=== PATIENT | male | born 1955 | race Caucasian/White ===

== ENCOUNTER 2018-07-06 20:02 | Inpatient (IN) | payer BC, OTHER ==
[2018-07-06 20:48] LABS: BASO # 0.1 10^3/uL (0.0-0.2); BASO % 0.7 % (0.0-1.0); EOS # 0.4 10^3/uL (0.0-0.50); EOS % 2.5 % (0.0-3.0); HEMATOCRIT 51.8 % (42.0-52.0); HEMOGLOBIN 17.5 g/dl (13.5-17.5); IMMATURE GRANULOCYTE % 0.4 % (0-3.0); LYMPH # 4.3 10^3/uL (1.5-4.5); LYMPH % 29.8 % (24.0-44.0); MEAN CORPUSCULAR HEMOGLOBIN 30.6 pg (27.0-33.0); MEAN CORPUSCULAR HGB CONC 33.8 g/dl (32.0-36.5); MEAN CORPUSCULAR VOLUME 90.6 fl (80.0-96.0); MONO # 1.3 10^3/uL (0.0-0.8); MONO % 8.7 % (0.0-5.0); NEUTROPHILS # 8.3 10^3/uL (1.8-7.7); NEUTROPHILS % 57.9 % (36.0-66.0); PLATELET COUNT, AUTOMATED 314 10^3/uL (150-450); RED BLOOD COUNT 5.72 10^6/uL (4.30-6.10); RED CELL DISTRIBUTION WIDTH 14.3 % (11.5-14.5); WHITE BLOOD COUNT 14.3 10^3/uL (4.0-10.0)
[2018-07-06 20:51] LABS: INR 0.96; PROTHROMBIN TIME 12.9 SECONDS (12.1-14.4)
[2018-07-06 20:52] LABS: PARTIAL THROMBOPLASTIN TIME 28.5 SECONDS (25.4-37.6)
[2018-07-06] MEDS: METOPROLOL TART 50 MG TAB PO ×2 (21:20)
[2018-07-06 21:25] LABS: ANION GAP 4 MEQ/L (8-16); BLOOD UREA NITROGEN 17 MG/DL (7-18); CALCIUM LEVEL 8.7 MG/DL (8.8-10.2); CARBON DIOXIDE LEVEL 30 MEQ/L (21-32); CHLORIDE LEVEL 106 MEQ/L (98-107); CPK CREATINE PHOSPHOKINASE 131 U/L (39-308); CREATININE FOR GFR 1.55 MG/DL (0.70-1.30); GLOMERULAR FILTRATION RATE 48.8 (>49); GLUCOSE, FASTING 89 MG/DL (70-100); MB/CK RELATIVE INDEX 1.76 (< OR =4); POTASSIUM SERUM 4.4 MEQ/L (3.5-5.1); SODIUM LEVEL 140 MEQ/L (136-145); TROPONIN I < 0.02 NG/ML (< 0.10)
[2018-07-06] MEDS: ASPIRIN ENTERIC 325 MG TAB PO ×2 (23:20)
[2018-07-07] MEDS: NS 1,000 ML IV ×4 (00:30→15:05)
[2018-07-07] MEDS ORDERED: NEOSPORIN OINT 0.9 GM PKT (FLOOR STOCK) As Ordered ×2 (02:39)
[2018-07-07 07:24] LABS: HEMATOCRIT 46.8 % (42.0-52.0); MEAN CORPUSCULAR HEMOGLOBIN 30.2 pg (27.0-33.0); MEAN CORPUSCULAR HGB CONC 34.2 g/dl (32.0-36.5); MEAN CORPUSCULAR VOLUME 88.5 fl (80.0-96.0); PLATELET COUNT, AUTOMATED 303 10^3/uL (150-450); RED BLOOD COUNT 5.29 10^6/uL (4.30-6.10); RED CELL DISTRIBUTION WIDTH 14.2 % (11.5-14.5); WHITE BLOOD COUNT 16.5 10^3/uL (4.0-10.0)
[2018-07-07 07:31] LABS: ESTIMATED AVERAGE GLUCOSE 128 MG/DL (60-110); HEMOGLOBIN A1c 6.1 %
[2018-07-07 07:41] LABS: ANION GAP 5 MEQ/L (8-16); BLOOD UREA NITROGEN 18 MG/DL (7-18); CALCIUM LEVEL 8.1 MG/DL (8.8-10.2); CARBON DIOXIDE LEVEL 27 MEQ/L (21-32); CHLORIDE LEVEL 109 MEQ/L (98-107); CHOLESTEROL LEVEL 231 MG/DL (<200); CREATININE FOR GFR 1.62 MG/DL (0.70-1.30); GLOMERULAR FILTRATION RATE 46.3 (>49); GLUCOSE, FASTING 96 MG/DL (70-100); HDL CHOLESTEROL 22 MG/DL (>40); LDL CHOLESTEROL 169 MG/DL (<100); NON-HDL-C 209 MG/DL; SODIUM LEVEL 141 MEQ/L (136-145); TRIGLYCERIDES LEVEL 202 MG/DL (<150)
[2018-07-07] MEDS: ATORVASTATIN 20 MG TAB PO ×2 (09:18)
[2018-07-07] MEDS: ASPIRIN 81 MG CHEW TABLET PO ×2 (09:18)
[2018-07-07] MEDS: PANTOPRAZOLE 40MG INJ (PROTONIX) (C9113) IV ×2 (09:18)
[2018-07-07] MEDS: NICOTINE 21MG/24HR 1 EA TRANSDERMAL TD ×2 (09:18)
[2018-07-07] MEDS ORDERED: PROHANCE 279.3MG/ML 15ML VIAL (A9576) As Ordered ×2 (12:05)
[2018-07-08] MEDS: HEPARIN SOD (PORCINE) 5000 UNITS/ML VIAL SQ ×2 (06:00)
[2018-07-08 08:45] LABS: BASO # 0.1 10^3/uL (0.0-0.2); BASO % 0.6 % (0.0-1.0); EOS # 0.4 10^3/uL (0.0-0.50); EOS % 3.4 % (0.0-3.0); HEMATOCRIT 50.3 % (42.0-52.0); HEMOGLOBIN 16.9 g/dl (13.5-17.5); IMMATURE GRANULOCYTE % 0.5 % (0-3.0); LYMPH # 4.4 10^3/uL (1.5-4.5); LYMPH % 33.8 % (24.0-44.0); MEAN CORPUSCULAR HEMOGLOBIN 30.4 pg (27.0-33.0); MEAN CORPUSCULAR HGB CONC 33.6 g/dl (32.0-36.5); MEAN CORPUSCULAR VOLUME 90.5 fl (80.0-96.0); MONO # 1.1 10^3/uL (0.0-0.8); MONO % 8.6 % (0.0-5.0); NEUTROPHILS % 53.1 % (36.0-66.0); PLATELET COUNT, AUTOMATED 318 10^3/uL (150-450); RED BLOOD COUNT 5.56 10^6/uL (4.30-6.10); RED CELL DISTRIBUTION WIDTH 14.1 % (11.5-14.5); WHITE BLOOD COUNT 13.1 10^3/uL (4.0-10.0)
[2018-07-08 08:56] LABS: SLIDE REVIEW Report; SOURCE PERIPHERAL SMEAR
[2018-07-08 09:08] LABS: ALBUMIN 3.6 GM/DL (3.2-5.2); ALKALINE PHOSPHATASE 138 U/L (45-117); ALT/SGPT 19 U/L (12-78); ANION GAP 6 MEQ/L (8-16); AST/SGOT 19 U/L (7-37); BILIRUBIN,TOTAL 0.7 MG/DL (0.2-1.0); BLOOD UREA NITROGEN 20 MG/DL (7-18); C REACTIVE PROTEIN QUANTITATIV 2.58 MG/DL (0.00-0.30); CALCIUM LEVEL 9.1 MG/DL (8.8-10.2); CARBON DIOXIDE LEVEL 29 MEQ/L (21-32); CHLORIDE LEVEL 109 MEQ/L (98-107); CREATININE FOR GFR 1.55 MG/DL (0.70-1.30); GLOMERULAR FILTRATION RATE 48.8 (>49); GLUCOSE, FASTING 92 MG/DL (70-100); MAGNESIUM LEVEL 2.2 MG/DL (1.8-2.4); POTASSIUM SERUM 4.6 MEQ/L (3.5-5.1); SODIUM LEVEL 144 MEQ/L (136-145); TOTAL PROTEIN 7.6 GM/DL (6.4-8.2)
[2018-07-08] MEDS: ATORVASTATIN 20 MG TAB PO ×2 (09:35)
[2018-07-08] MEDS: NICOTINE 21MG/24HR 1 EA TRANSDERMAL TD ×2 (09:35)
[2018-07-08] MEDS: PANTOPRAZOLE 40MG INJ (PROTONIX) (C9113) IV ×2 (09:35)
[2018-07-08] MEDS: ASPIRIN 81 MG CHEW TABLET PO ×2 (09:35)
[2018-07-08] MEDS: amLODIPine 10 MG TAB PO ×2 (12:59)
== END 2018-07-08 15:19 | disposition home or self-care (01) | DRG 47 ==
LOC: M ED INP 07-07 → M ED 20:02 → M ED INP 20:05 → M PCU 07-07 13:07
DX: G45.9 Transient cerebral ischemic attack, unspecified (principal); I10 Essential (primary) hypertension; F17.210 Nicotine dependence, cigarettes, uncomplicated; R73.03 Prediabetes; D72.829 Elevated white blood cell count, unspecified; E78.5 Hyperlipidemia, unspecified; Z91.19 Patient's noncompliance with other medical treatment and regimen; Z98.42 Cataract extraction status, left eye

== ENCOUNTER → 2018-08-17 | Outpatient (REF) | payer OTHER ==
[2018-08-17 16:15] LABS: ANION GAP 9 MEQ/L (8-16); BLOOD UREA NITROGEN 20 MG/DL (7-18); CALCIUM LEVEL 8.9 MG/DL (8.8-10.2); CARBON DIOXIDE LEVEL 29 MEQ/L (21-32); CHLORIDE LEVEL 100 MEQ/L (98-107); CREATININE FOR GFR 1.81 MG/DL (0.70-1.30); GLOMERULAR FILTRATION RATE 40.8 (>49); GLUCOSE, FASTING 179 MG/DL (70-100); HEMATOCRIT 37.8 % (42.0-52.0); HEMOGLOBIN 12.5 g/dl (13.5-17.5); MEAN CORPUSCULAR HEMOGLOBIN 28.7 pg (27.0-33.0); MEAN CORPUSCULAR HGB CONC 33.1 g/dl (32.0-36.5); MEAN CORPUSCULAR VOLUME 86.9 fl (80.0-96.0); PLATELET COUNT, AUTOMATED 438 10^3/uL (150-450); POTASSIUM SERUM 4.1 MEQ/L (3.5-5.1); RED BLOOD COUNT 4.35 10^6/uL (4.30-6.10); RED CELL DISTRIBUTION WIDTH 13.3 % (11.5-14.5); SODIUM LEVEL 138 MEQ/L (136-145); WHITE BLOOD COUNT 13.5 10^3/uL (4.0-10.0)
== END ==
LOC: M SFHCPLAZ 14:01
DX: I10 Essential (primary) hypertension (principal)
CPT/HCPCS: 80048

== ENCOUNTER → 2018-09-20 | Outpatient (REF) | payer OTHER ==
[~2018-09-20] MED LIST: AMLO10TA PO; ATOR1TAB21 PO; CHIL81CH2 PO; NICO21PAT TD; PROT20TA11 PO; PROT40IN4 IV
[2018-09-20 16:33] LABS: HEMOGLOBIN A1c 6.3 %
== END ==
LOC: M SFHCPLAZ 14:27
PROVIDERS: ATTEND Family Medicine
DX: R73.9 Hyperglycemia, unspecified (principal)

== ENCOUNTER 2020-06-09 23:53 | Emergency (ER) | payer BC, OTHER ==
[~2020-06-09] VITALS: Ht 170.2 cm; Wt 80.7 kg
[~2020-06-09 23:53] MED LIST changes: +ASPI-286 PO; -CHIL81CH2 PO
[2020-06-10] MEDS ORDERED: KETOROLAC 30 MG/ML 1ML VIAL IV ONE (01:00)
[2020-06-10 01:53] LABS: BASO # 0.1 10^3/uL (0.0-0.2); BASO % 0.6 % (0.0-1.0); EOS # 0.3 10^3/uL (0.0-0.5); EOS % 2.1 % (0.0-3.0); HEMATOCRIT 53.3 % (42.0-52.0); HEMOGLOBIN 17.1 g/dl (13.5-17.5); LYMPH # 2.6 10^3/uL (1.5-5.0); LYMPH % 21.4 % (24.0-44.0); MEAN CORPUSCULAR HEMOGLOBIN 26.5 pg (27.0-33.0); MEAN CORPUSCULAR HGB CONC 32.1 g/dl (32.0-36.5); MEAN CORPUSCULAR VOLUME 82.6 fl (80.0-96.0); MONO # 1.1 10^3/uL (0.0-0.8); MONO % 9.2 % (0.0-5.0); NEUTROPHILS % 66.4 % (36.0-66.0); PLATELET COUNT, AUTOMATED 331 10^3/uL (150-450); RED BLOOD COUNT 6.45 10^6/uL (4.30-6.10); WHITE BLOOD COUNT 12.1 10^3/uL (4.0-10.0)
[2020-06-10] MEDS ORDERED: LABETALOL 100MG/20ML VIAL IV STA ×2 (02:02→03:40)
[2020-06-10 02:34] LABS: ALBUMIN 3.4 GM/DL (3.2-5.2); ALT/SGPT 19 U/L (12-78); BILIRUBIN,DIRECT 0.1 MG/DL (0.0-0.2); BILIRUBIN,TOTAL 0.5 MG/DL (0.2-1.0); CK-MB VALUE MASS 1.7 NG/ML (<3.6); CPK CREATINE PHOSPHOKINASE 119 U/L (39-308); ETHYL ALCOHOL (ETHANOL) < 0.003 % (0.000-0.010); LIPASE 117 U/L (73-393); MB/CK RELATIVE INDEX 1.43 (< OR =4); TOTAL PROTEIN 8.2 GM/DL (6.4-8.2); TROPONIN I < 0.02 NG/ML (< 0.10)
[2020-06-10] MEDS: GASTROGRAFIN SOLUTION 30ML PO SCH ×2 (03:15→03:43)
--- NOTE | 2020-06-10 04:47 | REPVR ---
PROCEDURE INFORMATION: Exam: CT Abdomen And Pelvis Without Contrast Exam date and time: 06/10/2020 4:18 AM Age: 64 years old Clinical indication: Abdominal pain; Localized; Right lower quadrant (rlq); Additional info: Rlq abd pain, ckd TECHNIQUE: Imaging protocol: Computed tomography of the abdomen and pelvis without contrast. Radiation optimization: All CT scans at this facility use at least one of these dose optimization techniques: automated exposure control; mA and/or kV adjustment per patient size (includes targeted exams where dose is matched to clinical indication); or iterative reconstruction. Other contrast: Oral, gastrografin; COMPARISON: No relevant prior studies available. FINDINGS: Lungs: There is minimal peripheral ground-glass opacity in the visualized lung bases. Liver: The unenhanced liver appears unremarkable. Gallbladder and bile ducts: The gallbladder is normal with no stones or biliary ductal dilation. Pancreas: The pancreas appears unremarkable. No pancreatic ductal dilation identified. Spleen: The unenhanced spleen appears unremarkable. Adrenals: The adrenal glands are thickened but without discrete nodules. Kidneys and ureters: Mild diffuse thinning of the renal parenchyma is seen, indicating mild chronic atrophy. There are no ureteral stones or hydronephrosis. Stomach and bowel: The small bowel appears unremarkable. Mild diverticulosis is present in the distal colon. There is no dilation or thickening of the colon. Appendix: A normal appendix is identified. Intraperitoneal space: There is no evidence of free intraperitoneal or pelvic fluid. There is no free intraperitoneal air. Vasculature: Atherosclerotic changes are present in the abdominal aorta and the iliac arteries. There is mild dilation of the infrarenal abdominal aorta, measuring up to 3.3 x 2.7 cm. Lymph nodes: No lymphadenopathy is seen. Urinary bladder: The bladder is unremarkable. No stones identified. Reproductive: The prostate gland appears normal. Bones/joints: Degenerative endplate changes are seen at multiple levels in the visualized spine. No suspicious osseous lesions. No acute fractures or dislocations. Soft tissues: Unremarkable. IMPRESSION: 1. Normal appearance of the appendix. No evidence of appendicitis. 2. Diffuse atherosclerotic changes of the abdominal aorta with mild dilation of the infrarenal abdominal aorta measuring up to 3.3 x 2.7 cm. 3. Mild diverticulosis in the distal colon without evidence of acute diverticulitis. Electronically signed by: Nicole Valentin On 06/10/2020 04:47:26 AM
[2020-06-10] MEDS ORDERED: COLA100C5 PO (05:13)
[2020-06-10] MEDS ORDERED: LABE200T32 PO (05:13)
[2020-06-10] MEDS ORDERED: LABETALOL 200 MG TAB PO ONE (05:15)
[2020-06-10 05:28] VITALS: BP 196/97
[2020-06-10 05:31] VITALS: BP 210/105
--- NOTE | 2020-06-10 15:29 | ECGEPIP ---
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
--- NOTE | 2020-06-11 07:34 | ED PDOC ---
Post-Departure Follow-Up [facility] faxed formal report of ct abd/p for fu Jamri Whitman MD Jun 11, 2020 07:34
== END 2020-06-10 05:35 | disposition home or self-care (01) ==
LOC: M ED 23:53
DX: K59.00 Constipation, unspecified (principal); I10 Essential (primary) hypertension; F17.201 Nicotine dependence, unspecified, in remission; Z79.899 Other long term (current) drug therapy; Z79.82 Long term (current) use of aspirin
CPT/HCPCS: 74176; 80047; 80076; 82550; 82553; 83690; 84484; 85025; 93005; 93041; 96374; 96375; 96376; 99285; G0480; J1885; Q9963

== ENCOUNTER 2021-05-05 01:18 | Emergency (ER) | payer BC, OTHER ==
[~2021-05-05] VITALS: Ht 172.7 cm; Wt 80.5 kg
[~2021-05-05 01:18] MED LIST changes: +COLA100C5 PO; +LABE200T32 PO
--- NOTE | 2021-05-05 01:54 | REPVR ---
PROCEDURE INFORMATION: Exam: CT Cervical Spine Without Contrast Exam date and time: 05/05/2021 1:28 AM Age: 65 years old Clinical indication: Injury or trauma; Fall; Blunt trauma; Additional info: Etoh/ fall hitting head TECHNIQUE: Imaging protocol: Computed tomography images of the cervical spine without contrast. Radiation optimization: All CT scans at this facility use at least one of these dose optimization techniques: automated exposure control; mA and/or kV adjustment per patient size (includes targeted exams where dose is matched to clinical indication); or iterative reconstruction. COMPARISON: MRI-Brain W/O FOLL BY WITH 07/07/2018 11:55 AM FINDINGS: Bones/joints: Nonspecific straightening. Mild retrolisthesis of C4 on C5. Vertebral body heights are preserved. Moderate degenerative change about the dens. Moderate prevertebral osteophytosis. There are facet joint degenerative changes more prominent on the left. No acute cervical spine fracture. Discs/Spinal canal/Neural foramina: Multilevel cervical central and foraminal stenoses including high-grade stenoses. Lungs: Emphysema. Pleural spaces: No visible pneumothorax. Vasculature: Vascular calcification. Soft tissues: Unremarkable. IMPRESSION: No acute cervical spine fracture. Electronically signed by: Remberto Valentin On 05/05/2021 01:54:05 AM
--- NOTE | 2021-05-05 01:56 | REPVR ---
PROCEDURE INFORMATION: Exam: CT Head Without Contrast Exam date and time: 05/05/2021 1:28 AM Age: 65 years old Clinical indication: Injury or trauma; Fall; Blunt trauma (contusions or hematomas); Additional info: Etoh/ fall hitting head TECHNIQUE: Imaging protocol: Computed tomography of the head without contrast. Radiation optimization: All CT scans at this facility use at least one of these dose optimization techniques: automated exposure control; mA and/or kV adjustment per patient size (includes targeted exams where dose is matched to clinical indication); or iterative reconstruction. COMPARISON: MRI-Brain W/O FOLL BY WITH 07/07/2018 11:55 AM FINDINGS: Brain: Decreased attenuation of the supratentorial white matter is likely secondary to chronic microvascular ischemia. No acute intracranial hemorrhage. Cerebral ventricles: Ventricular and subarachnoid spaces are age appropriate. Paranasal sinuses: Visualized sinuses are unremarkable. No fluid levels. Mastoid air cells: Partial opacification of the right mastoid air cells. Vasculature: Intracranial vascular calcification. Bones/joints: Unremarkable. No acute fracture. Soft tissues: Right supraorbital/frontal scalp soft tissue swelling. IMPRESSION: No acute intracranial abnormality. Electronically signed by: Remberto Valentin On 05/05/2021 01:56:17 AM
[2021-05-05 03:15] VITALS: BP 160/83
== END 2021-05-05 04:46 | disposition left against medical advice (07) ==
LOC: M ED 01:18
DX: S09.90XA Unspecified injury of head, initial encounter (principal); Z53.9 Procedure and treatment not carried out, unspecified reason; W01.10XA Fall on same level from slipping, tripping and stumbling with subsequent striking against unspecified object, initial encounter; Y92.89 Other specified places as the place of occurrence of the external cause; Y93.9 Activity, unspecified; Y99.9 Unspecified external cause status; F10.10 Alcohol abuse, uncomplicated; I10 Essential (primary) hypertension; F17.200 Nicotine dependence, unspecified, uncomplicated; Z79.82 Long term (current) use of aspirin; Z79.899 Other long term (current) drug therapy

== ENCOUNTER → 2021-07-05 | Outpatient (CLI) | payer BC, OTHER ==
[2021-07-05 16:03] LABS: BASO # 0.1 10^3/uL (0.0-0.2); BASO % 0.6 % (0.0-1.0); EOS # 0.2 10^3/uL (0.0-0.5); EOS % 1.6 % (0.0-3.0); HEMATOCRIT 47.8 % (42.0-52.0); HEMOGLOBIN 15.8 g/dl (13.5-17.5); LYMPH # 2.7 10^3/uL (1.5-5.0); LYMPH % 21.7 % (24.0-44.0); MEAN CORPUSCULAR HEMOGLOBIN 28.8 pg (27.0-33.0); MEAN CORPUSCULAR HGB CONC 33.1 g/dl (32.0-36.5); MEAN CORPUSCULAR VOLUME 87.2 fl (80.0-96.0); MONO # 1.2 10^3/uL (0.0-0.8); MONO % 9.7 % (2.0-8.0); NEUTROPHILS # 8.3 10^3/uL (1.5-8.5); PLATELET COUNT, AUTOMATED 258 10^3/uL (150-450); RED BLOOD COUNT 5.48 10^6/uL (4.30-6.10); WHITE BLOOD COUNT 12.5 10^3/uL (4.0-10.0)
[2021-07-05 16:35] LABS: ALBUMIN 2.9 GM/DL (3.2-5.2); BILIRUBIN,TOTAL 0.5 MG/DL (0.2-1.0); CALCIUM LEVEL 8.9 MG/DL (8.8-10.2); CREATININE FOR GFR 2.07 MG/DL (0.70-1.30); GLOMERULAR FILTRATION RATE 34.6 (>49); TOTAL PROTEIN 7.2 GM/DL (6.4-8.2)
--- NOTE | 2021-07-07 08:14 | REP ---
INDICATION: ACUTE BRONCHITIS, ELEVATED BLOOD PRESSURE, TABACCO USE COMPARISON: 12/30/2011 TECHNIQUE: PA and lateral. FINDINGS: The mediastinum and cardiac silhouette are normal. The lung osei are clear and without acute consolidation, effusion, or pneumothorax. The skeletal structures are intact and normal. IMPRESSION: No acute cardiopulmonary process. <Electronically signed by Agapito Busby > 07/07/21 [id number]
== END ==
LOC: M WUC 13:51
PROVIDERS: ATTEND Physician Assistant
DX: J20.9 Acute bronchitis, unspecified (principal); R03.0 Elevated blood-pressure reading, without diagnosis of hypertension; Z72.0 Tobacco use

== ENCOUNTER 2022-04-27 00:26 | Emergency (ER) | payer BC, OTHER ==
[~2022-04-27] VITALS: Ht 170.2 cm; Wt 71.6 kg
[~2022-04-27 00:26] MED LIST changes: -ASPI-286 PO; -LABE200T32 PO; +LABE200T5 PO; +SM C81CH2 PO
[2022-04-27 04:43] VITALS: BP 170/104
== END 2022-04-27 06:12 | disposition left against medical advice (07) ==
LOC: M ED 00:26
DX: Z53.21 Procedure and treatment not carried out due to patient leaving prior to being seen by health care provider (principal)

== ENCOUNTER 2022-05-18 02:33 | Inpatient (IN) | payer MEDICARE, BC, OTHER ==
[~2022-05-18] VITALS: Ht 170.2 cm; Wt 74.4 kg
[2022-05-18] MEDS ORDERED: LABETALOL 100MG/20ML VIAL IV STA (02:50)
[2022-05-18 03:11] LABS: BASO # 0.1 10^3/uL (0.0-0.2); BASO % 0.7 % (0.0-1.0); EOS # 0.4 10^3/uL (0.0-0.5); EOS % 3.1 % (0.0-3.0); HEMATOCRIT 42.8 % (42.0-52.0); HEMOGLOBIN 13.9 g/dl (13.5-17.5); LYMPH # 2.8 10^3/uL (1.5-5.0); LYMPH % 24.9 % (24.0-44.0); MEAN CORPUSCULAR HEMOGLOBIN 27.3 pg (27.0-33.0); MEAN CORPUSCULAR HGB CONC 32.5 g/dl (32.0-36.5); MEAN CORPUSCULAR VOLUME 83.9 fl (80.0-96.0); MONO # 1.1 10^3/uL (0.0-0.8); MONO % 9.8 % (2.0-8.0); NEUTROPHILS % 61.2 % (36.0-66.0); PLATELET COUNT, AUTOMATED 372 10^3/uL (150-450); WHITE BLOOD COUNT 11.4 10^3/uL (4.0-10.0)
[2022-05-18 03:26] LABS: INR 1.07; PROTHROMBIN TIME 14.4 SECONDS (12.7-14.5)
[2022-05-18 03:43] LABS: RSV AMPLIFICATION NEGATIVE (NEGATIVE)
[2022-05-18 03:57] LABS: CK-MB VALUE MASS 2.6 NG/ML (<3.6); MB/CK RELATIVE INDEX 4.06 (< OR =4)
[2022-05-18 03:58] LABS: ALBUMIN 2.6 GM/DL (3.2-5.2); BILIRUBIN,DIRECT 0.2 MG/DL (0.0-0.2); BILIRUBIN,TOTAL 0.4 MG/DL (0.2-1.0); CALCIUM LEVEL 8.7 MG/DL (8.8-10.2); CREATININE FOR GFR 2.43 MG/DL (0.70-1.30); ETHYL ALCOHOL (ETHANOL) 0.004 % (0.000-0.010); GLOMERULAR FILTRATION RATE 28.7 (>49); POTASSIUM SERUM 3.8 MEQ/L (3.5-5.1); TOTAL PROTEIN 7.4 GM/DL (6.4-8.2)
[2022-05-18] MEDS ORDERED: hydroCHLOROthiazide 12.5 MG CAPSULE PO ONE (06:25)
[2022-05-18] MEDS ORDERED: METOPROLOL TART 25 MG TABLET PO ONE (06:25)
[2022-05-18] MEDS ORDERED: HOME MED LIST COMPLETE! XX SCH (06:40)
[2022-05-18] MEDS ORDERED: ACETAMINOPHEN TAB 650MG DOSE (2X325MG) PO PRN (07:10)
[2022-05-18] MEDS ORDERED: NS 500 ML IV SCH (07:10)
[2022-05-18 09:50] VITALS: BP 186/88
[2022-05-18] MEDS: NICOTINE 14 MG/24 HR TRANSDERMAL TD SCH (11:53)
[2022-05-18 12:19] VITALS: BP 169/77
[2022-05-18] MEDS: **hydrALAZINE HCL** 25 MG TAB PO SCH ×2 (14:12→21:07)
[2022-05-18 15:50] VITALS: BP 180/84
[2022-05-18 20:00] VITALS: BP 176/84
[2022-05-18] MEDS: METOPROLOL TART 25 MG TABLET PO SCH (21:08)
[2022-05-19] VITALS: BP 167/81
[2022-05-19 04:00] VITALS: BP 162/88
[2022-05-19] MEDS: **hydrALAZINE HCL** 25 MG TAB PO SCH ×2 (05:42→17:01)
[2022-05-19 05:53] LABS: CALCIUM LEVEL 8.4 MG/DL (8.8-10.2); CREATININE FOR GFR 2.56 MG/DL (0.70-1.30); MAGNESIUM LEVEL 2.2 MG/DL (1.8-2.4); POTASSIUM SERUM 3.9 MEQ/L (3.5-5.1)
[2022-05-19 07:48] LABS: HEMATOCRIT 38.7 % (42.0-52.0); HEMOGLOBIN 12.3 g/dl (13.5-17.5); MEAN CORPUSCULAR HEMOGLOBIN 27.2 pg (27.0-33.0); MEAN CORPUSCULAR HGB CONC 31.8 g/dl (32.0-36.5); MEAN CORPUSCULAR VOLUME 85.6 fl (80.0-96.0); PLATELET COUNT, AUTOMATED 345 10^3/uL (150-450); RED BLOOD COUNT 4.52 10^6/uL (4.30-6.10); WHITE BLOOD COUNT 10.7 10^3/uL (4.0-10.0)
[2022-05-19 08:00] VITALS: BP 180/86
[2022-05-19] MEDS: METOPROLOL TART 25 MG TABLET PO SCH (09:30)
[2022-05-19] MEDS: NICOTINE 14 MG/24 HR TRANSDERMAL TD SCH (09:33)
[2022-05-19 12:00] VITALS: BP 144/76
[2022-05-19] MEDS ORDERED: ELIQ5TAB PO (13:43)
[2022-05-19] MEDS ORDERED: ATOR80TA59 PO (14:52)
[2022-05-19] MEDS ORDERED: HYDR25TA PO (14:52)
[2022-05-19] MEDS ORDERED: AMLO1TAB25 PO (14:52)
[2022-05-19] MEDS ORDERED: METO1TAB87 PO (14:52)
[2022-05-19] MEDS ORDERED: APIXABAN 2.5 MG TAB (ELIQUIS) PO ONE (16:25)
[2022-05-19] MEDS ORDERED: METOPROLOL TART 25 MG TABLET PO ONE (16:25)
[2022-05-19 17:00] VITALS: BP 144/76
== END 2022-05-19 17:36 | disposition home or self-care (01) | DRG 64 ==
LOC: M ED 02:33 → M ED INP 07:06 → ENRESERV 08:41 → M PCU 09:46
PROVIDERS: ADMIT Internal Medicine; ATTEND Internal Medicine
DX: I63.59 Cerebral infarction due to unspecified occlusion or stenosis of other cerebral artery (principal); I67.83 Posterior reversible encephalopathy syndrome; I16.1 Hypertensive emergency; I48.92 Unspecified atrial flutter; I12.9 Hypertensive chronic kidney disease with stage 1 through stage 4 chronic kidney disease, or unspecified chronic kidney disease; N18.9 Chronic kidney disease, unspecified; F17.210 Nicotine dependence, cigarettes, uncomplicated; Z90.49 Acquired absence of other specified parts of digestive tract; Z79.82 Long term (current) use of aspirin; Z86.73 Personal history of transient ischemic attack (TIA), and cerebral infarction without residual deficits; Z79.899 Other long term (current) drug therapy; Z91.14 Patient's other noncompliance with medication regimen

== ENCOUNTER 2022-05-24 02:40 | Emergency (ER) | payer MEDICARE, BC, OTHER ==
[~2022-05-24] VITALS: Ht 172.7 cm; Wt 72.7 kg
[~2022-05-24 02:40] MED LIST changes: +AMLO1TAB25 PO; +ATOR80TA59 PO; +ELIQ5TAB PO; +HYDR25TA PO; +METO1TAB87 PO
[2022-05-24] MEDS ORDERED: **hydrALAZINE HCL** 25 MG TAB PO ONE (07:00)
[2022-05-24] MEDS ORDERED: METOPROLOL TART 25 MG TABLET PO ONE (07:00)
[2022-05-24 07:26] VITALS: BP 157/72
[2022-05-24 08:17] VITALS: BP 145/67
== END 2022-05-24 08:58 | disposition home or self-care (01) ==
LOC: M ED 02:40
DX: M79.661 Pain in right lower leg (principal); M79.662 Pain in left lower leg; R06.02 Shortness of breath; I10 Essential (primary) hypertension; I48.92 Unspecified atrial flutter; E78.5 Hyperlipidemia, unspecified; F17.200 Nicotine dependence, unspecified, uncomplicated; Z79.01 Long term (current) use of anticoagulants

== ENCOUNTER 2022-06-04 00:23 | Inpatient (IN) | payer MEDICARE, BC, OTHER ==
[~2022-06-04] VITALS: Ht 170.2 cm; Wt 63.7 kg
[2022-06-04] MEDS ORDERED: IPRATROPIUM 0.5MG/ALBUTEROL 2.5MG INH SOL UD 3ML (DUONEB) As Ordered ONE (00:40)
[2022-06-04] MEDS ORDERED: methylPREDNISolone 125MG 2ML VIAL IV ONE (00:40)
[2022-06-04 00:50] LABS: ABG BASE EXCESS -6.3 (-2.0-2.0); ABG HCO3 20.4 MEQ/L (22.0-26.0); ABG O2 SATURATION 97.9 % (95.0-99.0); ABG PARTIAL PRESSURE O2 112.9 mmHg (75.0-100.0); ABG STANDARD HCO3 19.4 MEQ/L (22.0-26.0); ABG TOTAL CO2 21.8 MEQ/L (23.0-31.0); ABG pH (ARTERIAL) 7.274 UNITS (7.350-7.450)
[2022-06-04] MEDS: IPRATROPIUM 0.5MG/ALBUTEROL 2.5MG INH SOL UD 3ML (DUONEB) NEB PRN ×2 (00:51→01:54)
[2022-06-04 00:57] LABS: BASO # 0.1 10^3/uL (0.0-0.2); BASO % 0.7 % (0.0-1.0); EOS # 0.3 10^3/uL (0.0-0.5); HEMATOCRIT 34.2 % (42.0-52.0); HEMOGLOBIN 11.1 g/dl (13.5-17.5); LYMPH # 1.7 10^3/uL (1.5-5.0); LYMPH % 11.6 % (24.0-44.0); MEAN CORPUSCULAR HEMOGLOBIN 27.1 pg (27.0-33.0); MEAN CORPUSCULAR HGB CONC 32.5 g/dl (32.0-36.5); MEAN CORPUSCULAR VOLUME 83.6 fl (80.0-96.0); MONO % 13.1 % (2.0-8.0); NEUTROPHILS # 10.6 10^3/uL (1.5-8.5); PLATELET COUNT, AUTOMATED 363 10^3/uL (150-450); RED BLOOD COUNT 4.09 10^6/uL (4.30-6.10); WHITE BLOOD COUNT 14.8 10^3/uL (4.0-10.0)
[2022-06-04 01:16] LABS: MONO # 1.9 10^3/uL (0.0-0.8)
[2022-06-04 01:36] LABS: CK-MB VALUE MASS 3.4 NG/ML (<3.6); MB/CK RELATIVE INDEX 2.86 (< OR =4)
[2022-06-04 01:55] LABS: ALBUMIN 2.3 GM/DL (3.2-5.2); BILIRUBIN,DIRECT 0.3 MG/DL (0.0-0.2); BILIRUBIN,TOTAL 0.6 MG/DL (0.2-1.0); CALCIUM LEVEL 8.3 MG/DL (8.8-10.2); CREATININE FOR GFR 5.4 MG/DL (0.70-1.30); GLOMERULAR FILTRATION RATE 11.4 (>49); POTASSIUM SERUM 3.9 MEQ/L (3.5-5.1); THYROID STIMULATING HORMONE 1.5 uIU/ML (0.358-3.740); TOTAL PROTEIN 7.3 GM/DL (6.4-8.2)
[2022-06-04] MEDS ORDERED: MEROPENEM INJ 1 GM in IV 1 EA IV ONE (02:00)
[2022-06-04] MEDS ORDERED: VANCOMYCIN HCL 1,000 MG, VIAL MATE ADAPTER 1 EACH in NS 250 ML IV ONE (02:00)
[2022-06-04 02:03] LABS: INR 1.5; PROTHROMBIN TIME 18.5 SECONDS (12.7-14.5)
[2022-06-04 02:05] LABS: PARTIAL THROMBOPLASTIN TIME 41.5 SECONDS (25.9-37.0)
[2022-06-04 02:37] LABS: CK-MB VALUE MASS 2.9 NG/ML (<3.6); MB/CK RELATIVE INDEX 2.69 (< OR =4)
[2022-06-04] MEDS ORDERED: MEROPENEM INJ 500 MG in IV 1 EA IV ONE (03:00)
[2022-06-04] MEDS ORDERED: PIPERACILLIN/TAZOBACTAM SOD 4.5 GM in D5W MINI-BAG PLUS 50 ML IV ONE (03:00)
[2022-06-04] MEDS ORDERED: DEXTROSE 50% 50 ML SYRINGE IV PRN (03:25)
[2022-06-04] MEDS: NS 1,000 ML IV SCH (03:25)
[2022-06-04] MEDS ORDERED: GLUCOSE 4GM CHEW TABLET PO PRN (03:25)
[2022-06-04] MEDS ORDERED: GLUCAGON INJ 1MG VIAL SC PRN (03:25)
[2022-06-04] MEDS ORDERED: ACETAMINOPHEN TAB 650MG DOSE (2X325MG) PO PRN (03:25)
[2022-06-04] MEDS ORDERED: ATOR80TA59 PO (03:28)
[2022-06-04] MEDS ORDERED: AMLO1TAB25 PO (03:28)
[2022-06-04] MEDS ORDERED: METO1TAB87 PO (03:28)
[2022-06-04] MEDS ORDERED: ELIQ2.5T PO (03:28)
[2022-06-04] MEDS ORDERED: HYDR-3910 PO (03:28)
[2022-06-04] MEDS ORDERED: NICO1DIS10 TD (03:28)
[2022-06-04] MEDS ORDERED: HOME MED LIST COMPLETE! XX SCH (03:30)
[2022-06-04] MEDS: DOXYCYCLINE HYCLATE 100MG TABLET PO SCH ×2 (03:52→08:58)
[2022-06-04] MEDS: CEFEPIME HCL 1 GM in D5W 50 ML IV SCH ×2 (06:00→18:35)
[2022-06-04 07:11] LABS: CALCIUM LEVEL 8.4 MG/DL (8.8-10.2); CREATININE FOR GFR 5.44 MG/DL (0.70-1.30); GLOMERULAR FILTRATION RATE 11.3 (>49); POTASSIUM SERUM 3.7 MEQ/L (3.5-5.1)
[2022-06-04] MEDS: IPRATROPIUM 0.5MG/ALBUTEROL 2.5MG INH SOL UD 3ML (DUONEB) NEB SCH ×3 (07:51→19:08)
[2022-06-04 07:55] VITALS: O2SAT 95
[2022-06-04] MEDS: INSULIN LISPRO (NovoLOG) PER UNIT SC SCH ×4 (08:57→21:00)
[2022-06-04] MEDS: ATORVASTATIN 20 MG TAB PO SCH (08:59)
[2022-06-04] MEDS: NICOTINE 7 MG/24 HR TRANSDERMAL TD SCH (08:59)
[2022-06-04] MEDS: methylPREDNISolone 40MG 1ML VIAL IV SCH ×2 (09:00→17:10)
[2022-06-04] MEDS: METOPROLOL TART 25 MG TABLET PO SCH ×2 (09:00→21:17)
[2022-06-04] MEDS: **hydrALAZINE HCL** 25 MG TAB PO SCH ×3 (09:01→21:16)
[2022-06-04 12:09] LABS: PERCENT SATURATION 7.8 % (19.7-50.0)
[2022-06-04 12:37] LABS: PTH INTACT 129.1 PG/ML (18.5-88.0); TOTAL 25(OH) VITAMIN D 18.2 NG/ML (30.0-100.0)
[2022-06-04 13:38] LABS: HEMATOCRIT 30.9 % (42.0-52.0); HEMOGLOBIN 9.9 g/dl (13.5-17.5)
[2022-06-04 16:00] VITALS: BP 123/73
[2022-06-04 18:09] LABS: HEMATOCRIT 30.5 % (42.0-52.0); HEMOGLOBIN 9.6 g/dl (13.5-17.5)
[2022-06-04 21:00] VITALS: BP 124/59
[2022-06-05 00:02] LABS: OSMOLALITY URINE 384 MOSM/KG (50-1400)
[2022-06-05 00:12] LABS: CHLORIDE,RANDOM URINE < 10 MEQ/L; POTASSIUM RANDOM URINE 36.5 MEQ/L; SODIUM,RANDOM URINE < 10 MEQ/L; TOTAL PROTEIN,RANDOM URINE 244.3 MG/DL (0.0-12.0)
[2022-06-05 00:36] LABS: HEMATOCRIT 27.7 % (42.0-52.0); HEMOGLOBIN 8.9 g/dl (13.5-17.5)
[2022-06-05] MEDS: methylPREDNISolone 40MG 1ML VIAL IV SCH ×3 (00:44→16:09)
[2022-06-05] MEDS: IPRATROPIUM 0.5MG/ALBUTEROL 2.5MG INH SOL UD 3ML (DUONEB) NEB SCH ×4 (02:36→20:17)
[2022-06-05] MEDS ORDERED: MAALOX 30 ML SUSP *UDC PO PRN (03:05)
[2022-06-05] MEDS: NS 1,000 ML IV SCH ×2 (03:15→21:08)
[2022-06-05] MEDS ORDERED: OXYMETAZOLINE 0.05% NASAL SPRAY (AFRIN) PRN (05:00)
[2022-06-05 05:23] VITALS: BP 128/57
[2022-06-05] MEDS: CEFEPIME HCL 1 GM in D5W 50 ML IV SCH ×2 (05:41→18:18)
[2022-06-05 07:36] LABS: BASO % 0.1 % (0.0-1.0); HEMATOCRIT 28.7 % (42.0-52.0); LYMPH # 0.7 10^3/uL (1.5-5.0); LYMPH % 5.1 % (24.0-44.0); MEAN CORPUSCULAR HEMOGLOBIN 26.5 pg (27.0-33.0); MEAN CORPUSCULAR HGB CONC 31.4 g/dl (32.0-36.5); MEAN CORPUSCULAR VOLUME 84.4 fl (80.0-96.0); MONO # 0.8 10^3/uL (0.0-0.8); MONO % 6.3 % (2.0-8.0); NEUTROPHILS # 11.5 10^3/uL (1.5-8.5); PLATELET COUNT, AUTOMATED 316 10^3/uL (150-450)
[2022-06-05 08:05] LABS: ALBUMIN 2.1 GM/DL (3.2-5.2); BILIRUBIN,TOTAL 0.4 MG/DL (0.2-1.0); CALCIUM LEVEL 8.7 MG/DL (8.8-10.2); CREATININE FOR GFR 5.87 MG/DL (0.70-1.30); GLOMERULAR FILTRATION RATE 10.4 (>49); MAGNESIUM LEVEL 2.9 MG/DL (1.8-2.4); PHOSPHORUS LEVEL 6.3 MG/DL (2.5-4.9); POTASSIUM SERUM 4.1 MEQ/L (3.5-5.1); TOTAL PROTEIN 6.8 GM/DL (6.4-8.2)
[2022-06-05] MEDS: ATORVASTATIN 20 MG TAB PO SCH (08:18)
[2022-06-05] MEDS: METOPROLOL TART 25 MG TABLET PO SCH ×2 (08:19→21:08)
[2022-06-05] MEDS: **hydrALAZINE HCL** 25 MG TAB PO SCH ×3 (08:19→21:08)
[2022-06-05] MEDS: DOXYCYCLINE HYCLATE 100MG TABLET PO SCH ×2 (08:19→21:08)
[2022-06-05 09:00] VITALS: BP 142/62
[2022-06-05] MEDS: INSULIN LISPRO (NovoLOG) PER UNIT SC SCH ×4 (09:07→21:00)
[2022-06-05] MEDS ORDERED: PREVNAR-20 VACCINE 0.5ML SYRINGE IM.IMMUN ONE (10:00)
[2022-06-05] MEDS: NICOTINE 7 MG/24 HR TRANSDERMAL TD SCH (10:08)
[2022-06-05] MEDS: [UNRECOGNIZED DRUG - REMARK] XX SCH (11:25)
[2022-06-05 14:00] VITALS: BP 121/53
[2022-06-05 21:00] VITALS: BP 123/60
[2022-06-05 21:08] LABS: ANA (HEP2) Negative (.); ANTI DOUBLE STRAND-DNA AB <1 IU/mL (0-9); ANTINUCLEAR ANTIBODIES DIRECT Positive (Negative); RNP ANTIBODIES 6.6 AI (0.0-0.9); SJOGREN'S ANTI SS-A <0.2 AI (0.0-0.9); SJOGREN'S ANTI SS-B <0.2 AI (0.0-0.9); SMITH ANTIBODIES <0.2 AI (0.0-0.9)
[2022-06-06] MEDS: methylPREDNISolone 40MG 1ML VIAL IV SCH ×3 (00:47→22:23)
[2022-06-06] MEDS: NS 1,000 ML IV SCH (00:48)
[2022-06-06] MEDS: IPRATROPIUM 0.5MG/ALBUTEROL 2.5MG INH SOL UD 3ML (DUONEB) NEB SCH ×5 (01:04→22:59)
[2022-06-06] MEDS: ALBUTEROL SULFATE 2.5 MG/0.5 ML INH NEB SOLN NEB PRN ×2 (01:33→22:20)
[2022-06-06 02:37] VITALS: BP 166/83
[2022-06-06 03:51] LABS: VENOUS BASE EXCESS -11.3 (-2.0-2.0); VENOUS HCO3 15.7 MEQ/L (23.0-27.0); VENOUS O2 SATURATION 96.1 % (60.0-80.0); VENOUS PARTIAL PRESSURE CO2 39.8 mmHg (38.0-50.0); VENOUS PARTIAL PRESSURE O2 95.9 mmHg (30.0-50.0); VENOUS PH 7.214 UNITS (7.330-7.430); VENOUS STANDARD HCO3 15.4 MEQ/L; VENOUS TOTAL CO2 16.9 MEQ/L (24.0-28.0)
[2022-06-06 03:56] LABS: BASO % 0.1 % (0.0-1.0); HEMOGLOBIN 8.8 g/dl (13.5-17.5); LYMPH # 0.7 10^3/uL (1.5-5.0); LYMPH % 3.7 % (24.0-44.0); MEAN CORPUSCULAR HEMOGLOBIN 26.7 pg (27.0-33.0); MEAN CORPUSCULAR HGB CONC 31.4 g/dl (32.0-36.5); MEAN CORPUSCULAR VOLUME 84.8 fl (80.0-96.0); MONO # 1.1 10^3/uL (0.0-0.8); MONO % 5.5 % (2.0-8.0); NEUTROPHILS # 17.7 10^3/uL (1.5-8.5); PLATELET COUNT, AUTOMATED 339 10^3/uL (150-450); WHITE BLOOD COUNT 19.7 10^3/uL (4.0-10.0)
[2022-06-06 04:07] LABS: INR 1.25; PROTHROMBIN TIME 16.1 SECONDS (12.7-14.5)
[2022-06-06 04:08] LABS: PARTIAL THROMBOPLASTIN TIME 34.9 SECONDS (25.9-37.0)
[2022-06-06 04:47] LABS: ALBUMIN 2.2 GM/DL (3.2-5.2); BILIRUBIN,TOTAL 0.4 MG/DL (0.2-1.0); CALCIUM LEVEL 8.4 MG/DL (8.8-10.2); CREATININE FOR GFR 6.15 MG/DL (0.70-1.30); GLOMERULAR FILTRATION RATE 9.8 (>49); MAGNESIUM LEVEL 2.8 MG/DL (1.8-2.4); PHOSPHORUS LEVEL 6.6 MG/DL (2.5-4.9); POTASSIUM SERUM 4.5 MEQ/L (3.5-5.1); TOTAL PROTEIN 6.9 GM/DL (6.4-8.2)
[2022-06-06 05:35] VITALS: BP 144/73
[2022-06-06] MEDS: CEFEPIME HCL 1 GM in D5W 50 ML IV SCH ×2 (05:52→22:23)
[2022-06-06] MEDS: SYMBICORT 160/4.5MCG INHALER 6GM INH SCH ×2 (07:13→20:00)
[2022-06-06] MEDS: ATORVASTATIN 20 MG TAB PO SCH (08:56)
[2022-06-06] MEDS: DOXYCYCLINE HYCLATE 100MG TABLET PO SCH ×2 (08:57→22:25)
[2022-06-06] MEDS: VITAMIN D 1,000 INTERNATIONAL UNITS TABLET PO SCH (08:57)
[2022-06-06] MEDS: METOPROLOL TART 25 MG TABLET PO SCH ×2 (08:57→22:25)
[2022-06-06] MEDS: **hydrALAZINE HCL** 25 MG TAB PO SCH ×3 (08:57→22:24)
[2022-06-06] MEDS: NICOTINE 7 MG/24 HR TRANSDERMAL TD SCH (08:58)
[2022-06-06] MEDS: INSULIN LISPRO (NovoLOG) PER UNIT SC SCH ×4 (08:58→21:00)
[2022-06-06] MEDS: [UNRECOGNIZED DRUG - REMARK] XX SCH (09:00)
[2022-06-06] MEDS ORDERED: SODIUM CHLORIDE 0.9% 1000ML IV PRN (10:25)
[2022-06-06] MEDS ORDERED: SODIUM CHLORIDE NASAL 0.65% SPRAY BTL (OCEAN) PRN (12:50)
[2022-06-06 13:09] LABS: HEPATITIS B CORE ANTIBODY IGM NEGATIVE (NEGATIVE); HEPATITIS B SURFACE ANTIBODY NEGATIVE (POSITIVE); HEPATITIS B SURFACE ANTIGEN NEGATIVE (NEGATIVE); HEPATITIS C VIRUS ABY INDEX < 0.0 INDEX (<0.8)
[2022-06-06 16:09] LABS: MYCOPLASMA PNEUMONIAE IgG 553 U/mL (0-99); MYCOPLASMA PNEUMONIAE IgM <770 U/mL (0-769)
[2022-06-06] MEDS ORDERED: LIDOCAINE 1% MDV 20ML VIAL As Ordered ONE (16:51)
[2022-06-06 22:00] VITALS: BP 147/74
[2022-06-07] VITALS (45 sets, daily range): BP systolic 101–166; BP diastolic 55–78
[2022-06-07] MEDS: methylPREDNISolone 40MG 1ML VIAL IV SCH ×2 (00:45→09:22)
[2022-06-07 01:54] LABS: ABG BASE EXCESS -1.4 (-2.0-2.0); ABG HCO3 23.2 MEQ/L (22.0-26.0); ABG O2 SATURATION 93.4 % (95.0-99.0); ABG PARTIAL PRESSURE CO2 38.6 mmHg (35.0-45.0); ABG PARTIAL PRESSURE O2 68.2 mmHg (75.0-100.0); ABG STANDARD HCO3 23.2 MEQ/L (22.0-26.0); ABG TOTAL CO2 24.4 MEQ/L (23.0-31.0); ABG pH (ARTERIAL) 7.397 UNITS (7.350-7.450)
[2022-06-07] MEDS: IPRATROPIUM 0.5MG/ALBUTEROL 2.5MG INH SOL UD 3ML (DUONEB) NEB SCH ×4 (02:01→20:00)
[2022-06-07] MEDS ORDERED: VANCOMYCIN HCL 750 MG, VIAL MATE ADAPTER 1 EACH in D5W 250 ML IV ONE ×6 (03:00)
[2022-06-07 05:11] LABS: HEMATOCRIT 25.9 % (42.0-52.0); HEMOGLOBIN 8.3 g/dl (13.5-17.5); LYMPH # 0.6 10^3/uL (1.5-5.0); LYMPH % 4.2 % (24.0-44.0); MEAN CORPUSCULAR HEMOGLOBIN 26.3 pg (27.0-33.0); MONO # 0.7 10^3/uL (0.0-0.8); MONO % 4.9 % (2.0-8.0); NEUTROPHILS # 13.3 10^3/uL (1.5-8.5); NEUTROPHILS % 90.3 % (36.0-66.0); PLATELET COUNT, AUTOMATED 289 10^3/uL (150-450); RED BLOOD COUNT 3.16 10^6/uL (4.30-6.10); WHITE BLOOD COUNT 14.8 10^3/uL (4.0-10.0)
[2022-06-07] MEDS: CEFEPIME HCL 1 GM in D5W 50 ML IV SCH (05:25)
[2022-06-07] MEDS ORDERED: VANCOMYCIN INTERMITTENT/PULSE DOSING BY CLINICAL PHARMACIST PER DOSING PROTOCOL XX SCH (06:00)
[2022-06-07 06:04] LABS: ALBUMIN 2.1 GM/DL (3.2-5.2); BILIRUBIN,TOTAL 0.7 MG/DL (0.2-1.0); CALCIUM LEVEL 8.5 MG/DL (8.8-10.2); CREATININE FOR GFR 3.78 MG/DL (0.70-1.30); GLOMERULAR FILTRATION RATE 17.2 (>49); MAGNESIUM LEVEL 2.3 MG/DL (1.8-2.4); PHOSPHORUS LEVEL 5.2 MG/DL (2.5-4.9); POTASSIUM SERUM 3.8 MEQ/L (3.5-5.1); TOTAL PROTEIN 6.8 GM/DL (6.4-8.2); VANCOMYCIN RANDOM 29.6 UG/ML
[2022-06-07] MEDS ORDERED: HALOPERIDOL 5MG/ML VIAL (J1630 PER 1) As Ordered ONE (06:48)
[2022-06-07] MEDS ORDERED: OLANZapine INTRAMUSCULAR 10MG VIAL IM ONE (07:00)
[2022-06-07] MEDS ORDERED: HALOPERIDOL 5MG/ML VIAL (J1630 PER 1) IM ONE (07:00)
[2022-06-07] MEDS ORDERED: LORazepam 2 MG/ML VIAL As Ordered ONE (07:23)
[2022-06-07] MEDS ORDERED: LORazepam 2 MG/ML VIAL IV STA (07:25)
[2022-06-07] MEDS ORDERED: MIDAZOLAM INJ 2MG/2ML VIAL (J2250 PER 1MG) As Ordered ONE (07:37)
[2022-06-07] MEDS ORDERED: fentaNYL 100 MCG/2 ML INJECTION As Ordered ONE (07:37)
[2022-06-07] MEDS ORDERED: FENTANYL DRIP LOCK BOX KEY 1 EACH XX PRN (07:50)
[2022-06-07] MEDS ORDERED: fentaNYL 100 MCG/2 ML INJECTION IV ONE (07:50)
[2022-06-07] MEDS ORDERED: ETOMIDATE INJ 20MG/10ML VIAL IV STA (07:50)
[2022-06-07] MEDS ORDERED: PROPOFOL 1,000 MG/100 ML VIAL As Ordered ONE (07:50)
[2022-06-07] MEDS ORDERED: MIDAZOLAM INJ 2MG/2ML VIAL (J2250 PER 1MG) IV STA ×2 (07:50→11:48)
[2022-06-07] MEDS: NICOTINE 7 MG/24 HR TRANSDERMAL TD SCH (09:00)
[2022-06-07] MEDS ORDERED: ASPIRIN 81MG ENTERIC TABLET PO SCH (09:00)
[2022-06-07] MEDS: [UNRECOGNIZED DRUG - REMARK] XX SCH (09:00)
[2022-06-07] MEDS: METOPROLOL TART 25 MG TABLET PO SCH ×3 (09:00→21:39)
[2022-06-07] MEDS: **hydrALAZINE HCL** 25 MG TAB PO SCH ×3 (09:00→20:21)
[2022-06-07] MEDS ORDERED: ASPIRIN 81 MG CHEW TABLET PO SCH (09:00)
[2022-06-07 09:19] LABS: ABG BASE EXCESS -3.1 (-2.0-2.0); ABG HCO3 23.1 MEQ/L (22.0-26.0); ABG O2 SATURATION 89.4 % (95.0-99.0); ABG PARTIAL PRESSURE CO2 46.1 mmHg (35.0-45.0); ABG STANDARD HCO3 21.7 MEQ/L (22.0-26.0); ABG TOTAL CO2 24.5 MEQ/L (23.0-31.0); ABG pH (ARTERIAL) 7.317 UNITS (7.350-7.450)
[2022-06-07] MEDS: VITAMIN D 1,000 INTERNATIONAL UNITS TABLET PO SCH (09:21)
[2022-06-07] MEDS: ATORVASTATIN 20 MG TAB PO SCH (09:21)
[2022-06-07] MEDS: DOXYCYCLINE HYCLATE 100MG TABLET PO SCH ×2 (09:22→20:22)
[2022-06-07] MEDS: fentaNYL CITRATE/NaCl 1,000 MCG in IV 1 EA IV SCH (09:24)
[2022-06-07] MEDS ORDERED: ETOMIDATE INJ 20MG/10ML VIAL ONE (10:15)
[2022-06-07] MEDS ORDERED: LIDOCAINE 1% MDV 20ML VIAL SC ONE (11:20)
[2022-06-07] MEDS: PIPERACILLIN/TAZOBACTAM SOD 4.5 GM in D5W MINI-BAG PLUS 50 ML IV SCH ×2 (11:37→23:04)
[2022-06-07] MEDS: PANTOPRAZOLE 40MG VIAL IV SCH ×2 (11:37→23:04)
[2022-06-07] MEDS: INSULIN LISPRO (NovoLOG) PER UNIT SC SCH ×2 (12:25→18:02)
[2022-06-07] MEDS: methylPREDNISolone 125MG 2ML VIAL IV SCH ×2 (13:10→18:02)
[2022-06-07] MEDS ORDERED: IPRATROPIUM 0.5MG/ALBUTEROL 2.5MG INH SOL UD 3ML (DUONEB) NEB SCH (14:00)
[2022-06-07 15:11] LABS: ANTI DOUBLE STRAND-DNA AB <1 IU/mL (0-9); ANTINUCLEAR ANTIBODIES DIRECT Positive (Negative); RNP ANTIBODIES 6.4 AI (0.0-0.9); SJOGREN'S ANTI SS-A <0.2 AI (0.0-0.9); SJOGREN'S ANTI SS-B <0.2 AI (0.0-0.9); SMITH ANTIBODIES <0.2 AI (0.0-0.9)
[2022-06-07] MEDS: propofoL 1,000 MG in IV 1 EA IV SCH (15:31)
[2022-06-07] MEDS ORDERED: METOPROLOL TART 25 MG TABLET PO ONE (15:45)
[2022-06-07 17:55] LABS: ABG BASE EXCESS -3.4 (-2.0-2.0); ABG HCO3 20.9 MEQ/L (22.0-26.0); ABG O2 SATURATION 94.4 % (95.0-99.0); ABG PARTIAL PRESSURE CO2 34.4 mmHg (35.0-45.0); ABG PARTIAL PRESSURE O2 77.2 mmHg (75.0-100.0); ABG STANDARD HCO3 21.6 MEQ/L (22.0-26.0); ABG TOTAL CO2 21.9 MEQ/L (23.0-31.0); ABG pH (ARTERIAL) 7.401 UNITS (7.350-7.450)
[2022-06-07 18:23] LABS: MAGNESIUM LEVEL 2.6 MG/DL (1.8-2.4); POTASSIUM SERUM 3.5 MEQ/L (3.5-5.1)
[2022-06-07] MEDS ORDERED: POTASSIUM CHLORIDE 10% LIQ 20 MEQ/15 ML UDC PO ONE (18:45)
[2022-06-07] MEDS ORDERED: HEPARIN SOD (PORCINE) 5000UNITS/ML 1ML VIAL/SYRINGE SQ SCH (21:00)
[2022-06-08] VITALS (24 sets, daily range): BP systolic 104–144; BP diastolic 55–72
[2022-06-08] MEDS: INSULIN LISPRO (NovoLOG) PER UNIT SC SCH ×5 (00:12→23:56)
[2022-06-08] MEDS: methylPREDNISolone 125MG 2ML VIAL IV SCH ×2 (00:17→06:13)
[2022-06-08] MEDS: propofoL 1,000 MG in IV 1 EA IV SCH ×2 (00:18→14:25)
[2022-06-08] MEDS: IPRATROPIUM 0.5MG/ALBUTEROL 2.5MG INH SOL UD 3ML (DUONEB) NEB SCH ×4 (01:47→20:14)
[2022-06-08 05:10] LABS: HEMATOCRIT 23.6 % (42.0-52.0); HEMOGLOBIN 7.8 g/dl (13.5-17.5); LYMPH # 0.4 10^3/uL (1.5-5.0); LYMPH % 5.3 % (24.0-44.0); MEAN CORPUSCULAR HEMOGLOBIN 26.6 pg (27.0-33.0); MEAN CORPUSCULAR HGB CONC 33.1 g/dl (32.0-36.5); MEAN CORPUSCULAR VOLUME 80.5 fl (80.0-96.0); MONO # 0.4 10^3/uL (0.0-0.8); MONO % 6.2 % (2.0-8.0); NEUTROPHILS # 5.9 10^3/uL (1.5-8.5); NEUTROPHILS % 88.1 % (36.0-66.0); PLATELET COUNT, AUTOMATED 231 10^3/uL (150-450); RED BLOOD COUNT 2.93 10^6/uL (4.30-6.10); WHITE BLOOD COUNT 6.7 10^3/uL (4.0-10.0)
[2022-06-08 05:59] LABS: ABG BASE EXCESS -3.8 (-2.0-2.0); ABG HCO3 20.5 MEQ/L (22.0-26.0); ABG O2 SATURATION 95.8 % (95.0-99.0); ABG PARTIAL PRESSURE CO2 33.6 mmHg (35.0-45.0); ABG PARTIAL PRESSURE O2 88.3 mmHg (75.0-100.0); ABG STANDARD HCO3 21.3 MEQ/L (22.0-26.0); ABG TOTAL CO2 21.5 MEQ/L (23.0-31.0); ABG pH (ARTERIAL) 7.403 UNITS (7.350-7.450)
[2022-06-08 06:24] LABS: BILIRUBIN,TOTAL 0.7 MG/DL (0.2-1.0); CALCIUM LEVEL 8.1 MG/DL (8.8-10.2); CREATININE FOR GFR 4.72 MG/DL (0.70-1.30); GLOMERULAR FILTRATION RATE 13.3 (>49); MAGNESIUM LEVEL 2.8 MG/DL (1.8-2.4); POTASSIUM SERUM 3.5 MEQ/L (3.5-5.1); TOTAL PROTEIN 5.9 GM/DL (6.4-8.2); VANCOMYCIN RANDOM 14.4 UG/ML
[2022-06-08] MEDS: DOXYCYCLINE HYCLATE 100 MG in D5W MINI-BAG PLUS 100 ML IV SCH ×2 (07:51→20:56)
[2022-06-08] MEDS: METOPROLOL TART 25 MG TABLET PO SCH (07:52)
[2022-06-08] MEDS: NICOTINE 7 MG/24 HR TRANSDERMAL TD SCH (07:52)
[2022-06-08] MEDS ORDERED: POTASSIUM CHLORIDE 10% LIQ 20 MEQ/15 ML UDC PO ONE (08:20)
[2022-06-08] MEDS: [UNRECOGNIZED DRUG - REMARK] XX SCH (08:43)
[2022-06-08] MEDS ORDERED: MIDAZOLAM INJ 2MG/2ML VIAL (J2250 PER 1MG) As Ordered ONE (11:20)
[2022-06-08] MEDS ORDERED: MIDAZOLAM INJ 2MG/2ML VIAL (J2250 PER 1MG) IV ONE (11:20)
[2022-06-08] MEDS: PANTOPRAZOLE 40MG VIAL IV SCH ×2 (12:33→23:59)
[2022-06-08] MEDS: METOPROLOL TART 25 MG TABLET NG SCH ×3 (12:34→23:59)
[2022-06-08] MEDS: PIPERACILLIN/TAZOBACTAM SOD 4.5 GM in D5W MINI-BAG PLUS 50 ML IV SCH ×2 (12:34→23:55)
[2022-06-08 15:07] LABS: BODY FLUID CULTURE Not indicated. (.); LEGIONELLA ANTIGEN URINE Negative (Negative); ORGANISM ID Not indicated. (.); SPECIMEN SOURCE Urine (.); URINE STREP PNEUMONIAE ANTIGEN Negative (Negative)
[2022-06-08] MEDS ORDERED: VANCOMYCIN HCL 1,000 MG, VIAL MATE ADAPTER 1 EACH in D5W 250 ML IV SCH (16:00)
[2022-06-08] MEDS: methylPREDNISolone 40MG 1ML VIAL IV SCH (18:16)
[2022-06-09] VITALS (25 sets, daily range): BP systolic 93–154; BP diastolic 55–75
[2022-06-09] MEDS: IPRATROPIUM 0.5MG/ALBUTEROL 2.5MG INH SOL UD 3ML (DUONEB) NEB SCH ×4 (01:39→19:13)
[2022-06-09] MEDS: propofoL 1,000 MG in IV 1 EA IV SCH ×5 (02:48→23:46)
[2022-06-09] MEDS: fentaNYL CITRATE/NaCl 1,000 MCG in IV 1 EA IV SCH ×2 (02:48→07:50)
[2022-06-09] MEDS: METOPROLOL TART 25 MG TABLET NG SCH ×4 (05:20→23:47)
[2022-06-09 05:45] LABS: ABG BASE EXCESS -3.2 (-2.0-2.0); ABG HCO3 20.8 MEQ/L (22.0-26.0); ABG O2 SATURATION 93.4 % (95.0-99.0); ABG PARTIAL PRESSURE CO2 32.7 mmHg (35.0-45.0); ABG PARTIAL PRESSURE O2 71.1 mmHg (75.0-100.0); ABG STANDARD HCO3 21.8 MEQ/L (22.0-26.0); ABG TOTAL CO2 21.8 MEQ/L (23.0-31.0); ABG pH (ARTERIAL) 7.422 UNITS (7.350-7.450)
[2022-06-09 05:47] LABS: HEMATOCRIT 21.8 % (42.0-52.0); HEMOGLOBIN 7.4 g/dl (13.5-17.5); LYMPH # 0.4 10^3/uL (1.5-5.0); LYMPH % 4.5 % (24.0-44.0); MEAN CORPUSCULAR HEMOGLOBIN 27.2 pg (27.0-33.0); MEAN CORPUSCULAR HGB CONC 33.9 g/dl (32.0-36.5); MEAN CORPUSCULAR VOLUME 80.1 fl (80.0-96.0); MONO # 0.6 10^3/uL (0.0-0.8); MONO % 7.1 % (2.0-8.0); NEUTROPHILS # 7.5 10^3/uL (1.5-8.5); NEUTROPHILS % 87.1 % (36.0-66.0); PLATELET COUNT, AUTOMATED 207 10^3/uL (150-450); RED BLOOD COUNT 2.72 10^6/uL (4.30-6.10); WHITE BLOOD COUNT 8.6 10^3/uL (4.0-10.0)
[2022-06-09] MEDS: INSULIN LISPRO (NovoLOG) PER UNIT SC SCH ×4 (05:49→23:47)
[2022-06-09] MEDS: methylPREDNISolone 40MG 1ML VIAL IV SCH (05:49)
[2022-06-09 06:18] LABS: ALBUMIN 2.1 GM/DL (3.2-5.2); BILIRUBIN,TOTAL 0.7 MG/DL (0.2-1.0); CALCIUM LEVEL 8.3 MG/DL (8.8-10.2); CREATININE FOR GFR 5.22 MG/DL (0.70-1.30); GLOMERULAR FILTRATION RATE 11.9 (>49); MAGNESIUM LEVEL 2.9 MG/DL (1.8-2.4); POTASSIUM SERUM 3.6 MEQ/L (3.5-5.1)
[2022-06-09] MEDS ORDERED: SODIUM CHLORIDE 0.9% 1000ML IV PRN (06:40)
[2022-06-09] MEDS: NICOTINE 7 MG/24 HR TRANSDERMAL TD SCH (08:13)
[2022-06-09] MEDS: DOXYCYCLINE HYCLATE 100 MG in D5W MINI-BAG PLUS 100 ML IV SCH (08:13)
[2022-06-09] MEDS: [UNRECOGNIZED DRUG - REMARK] XX SCH (09:00)
[2022-06-09] MEDS ORDERED: PREVNAR-20 VACCINE 0.5ML SYRINGE IM.IMMUN ONE (09:00)
[2022-06-09] MEDS: PIPERACILLIN/TAZOBACTAM SOD 4.5 GM in D5W MINI-BAG PLUS 50 ML IV SCH ×2 (10:27→22:03)
[2022-06-09] MEDS: SUCRALFATE SUSP 1GM/10ML UD PO SCH ×3 (12:00→23:46)
[2022-06-09] MEDS ORDERED: MIDAZOLAM INJ 2MG/2ML VIAL (J2250 PER 1MG) IV STA (12:08)
[2022-06-09] MEDS ORDERED: fentaNYL 100 MCG/2 ML INJECTION IV STA (12:08)
[2022-06-09] MEDS: PANTOPRAZOLE 40MG VIAL IV SCH ×2 (12:36→23:47)
[2022-06-09] MEDS ORDERED: VANCOMYCIN HCL 500 MG in D5W MINI-BAG PLUS 100 ML IV ONE (14:00)
[2022-06-09 14:14] LABS: HEMATOCRIT 26.6 % (42.0-52.0)
[2022-06-10] VITALS (25 sets, daily range): BP systolic 116–171; BP diastolic 64–87
[2022-06-10] MEDS: IPRATROPIUM 0.5MG/ALBUTEROL 2.5MG INH SOL UD 3ML (DUONEB) NEB SCH ×4 (00:21→20:13)
[2022-06-10] MEDS: MIDAZOLAM INJ 2MG/2ML VIAL (J2250 PER 1MG) IV PRN ×2 (01:47→08:41)
[2022-06-10] MEDS: propofoL 1,000 MG in IV 1 EA IV SCH (04:28)
[2022-06-10] MEDS: METOPROLOL TART 25 MG TABLET NG SCH ×2 (05:20→12:00)
[2022-06-10] MEDS: SUCRALFATE SUSP 1GM/10ML UD PO SCH ×3 (05:20→17:43)
[2022-06-10] MEDS: INSULIN LISPRO (NovoLOG) PER UNIT SC SCH ×3 (05:21→17:46)
[2022-06-10 05:43] LABS: BASO % 0.1 % (0.0-1.0); HEMATOCRIT 26.2 % (42.0-52.0); HEMOGLOBIN 8.8 g/dl (13.5-17.5); LYMPH # 1.2 10^3/uL (1.5-5.0); LYMPH % 8.2 % (24.0-44.0); MEAN CORPUSCULAR HEMOGLOBIN 27.3 pg (27.0-33.0); MEAN CORPUSCULAR HGB CONC 33.6 g/dl (32.0-36.5); MEAN CORPUSCULAR VOLUME 81.4 fl (80.0-96.0); MONO # 1.3 10^3/uL (0.0-0.8); MONO % 8.4 % (2.0-8.0); NEUTROPHILS # 12.3 10^3/uL (1.5-8.5); NEUTROPHILS % 81.9 % (36.0-66.0); PLATELET COUNT, AUTOMATED 203 10^3/uL (150-450); RED BLOOD COUNT 3.22 10^6/uL (4.30-6.10); WHITE BLOOD COUNT 15.1 10^3/uL (4.0-10.0)
[2022-06-10 06:24] LABS: ALBUMIN 2.2 GM/DL (3.2-5.2); BILIRUBIN,TOTAL 0.7 MG/DL (0.2-1.0); CALCIUM LEVEL 8.4 MG/DL (8.8-10.2); CREATININE FOR GFR 3.46 MG/DL (0.70-1.30); GLOMERULAR FILTRATION RATE 19.1 (>49); MAGNESIUM LEVEL 2.6 MG/DL (1.8-2.4); POTASSIUM SERUM 4.1 MEQ/L (3.5-5.1); TOTAL PROTEIN 6.2 GM/DL (6.4-8.2)
[2022-06-10 06:46] LABS: ABG BASE EXCESS -2.2 (-2.0-2.0); ABG HCO3 21.8 MEQ/L (22.0-26.0); ABG O2 SATURATION 92.4 % (95.0-99.0); ABG PARTIAL PRESSURE O2 67.6 mmHg (75.0-100.0); ABG STANDARD HCO3 22.5 MEQ/L (22.0-26.0); ABG TOTAL CO2 22.8 MEQ/L (23.0-31.0); ABG pH (ARTERIAL) 7.424 UNITS (7.350-7.450)
[2022-06-10] MEDS ORDERED: dexmedeTOMidine 200 MCG in IV 1 EA IV SCH (08:40)
[2022-06-10] MEDS: NICOTINE 7 MG/24 HR TRANSDERMAL TD SCH (08:43)
[2022-06-10] MEDS ORDERED: METOPROLOL 5 MG/5 ML VIAL IV STA ×2 (08:44→11:59)
[2022-06-10] MEDS ORDERED: CHLORHEXIDINE GLUCONATE 0.12 % 15ML UDC (PERIDEX ORAL RINSE) MT SCH (09:00)
[2022-06-10] MEDS: [UNRECOGNIZED DRUG - REMARK] XX SCH (09:00)
[2022-06-10 11:06] LABS: ABG BASE EXCESS -0.7 (-2.0-2.0); ABG PARTIAL PRESSURE CO2 39.4 mmHg (35.0-45.0); ABG PARTIAL PRESSURE O2 76.2 mmHg (75.0-100.0); ABG STANDARD HCO3 23.9 MEQ/L (22.0-26.0); ABG TOTAL CO2 25.2 MEQ/L (23.0-31.0); ABG pH (ARTERIAL) 7.402 UNITS (7.350-7.450)
[2022-06-10] MEDS: PIPERACILLIN/TAZOBACTAM SOD 4.5 GM in D5W MINI-BAG PLUS 50 ML IV SCH ×2 (11:11→22:10)
[2022-06-10] MEDS: PANTOPRAZOLE 40MG VIAL IV SCH (12:06)
[2022-06-10] MEDS: METOPROLOL TART 25 MG TABLET PO SCH (17:43)
[2022-06-11] VITALS (15 sets, daily range): BP systolic 120–171; BP diastolic 56–76
[2022-06-11] MEDS: SUCRALFATE SUSP 1GM/10ML UD PO SCH ×5 (00:10→23:38)
[2022-06-11] MEDS: PANTOPRAZOLE 40MG VIAL IV SCH ×3 (00:10→23:38)
[2022-06-11] MEDS: METOPROLOL TART 25 MG TABLET PO SCH ×5 (00:11→23:39)
[2022-06-11] MEDS: IPRATROPIUM 0.5MG/ALBUTEROL 2.5MG INH SOL UD 3ML (DUONEB) NEB SCH ×4 (01:33→19:39)
[2022-06-11 05:15] LABS: BASO % 0.1 % (0.0-1.0); EOS # 0.1 10^3/uL (0.0-0.5); EOS % 0.7 % (0.0-3.0); HEMATOCRIT 28.3 % (42.0-52.0); HEMOGLOBIN 9.1 g/dl (13.5-17.5); LYMPH # 2.1 10^3/uL (1.5-5.0); MEAN CORPUSCULAR HEMOGLOBIN 26.9 pg (27.0-33.0); MEAN CORPUSCULAR HGB CONC 32.2 g/dl (32.0-36.5); MEAN CORPUSCULAR VOLUME 83.7 fl (80.0-96.0); MONO # 1.2 10^3/uL (0.0-0.8); MONO % 6.7 % (2.0-8.0); NEUTROPHILS # 13.9 10^3/uL (1.5-8.5); NEUTROPHILS % 79.1 % (36.0-66.0); PLATELET COUNT, AUTOMATED 226 10^3/uL (150-450); RED BLOOD COUNT 3.38 10^6/uL (4.30-6.10); WHITE BLOOD COUNT 17.6 10^3/uL (4.0-10.0)
[2022-06-11] MEDS: INSULIN LISPRO (NovoLOG) PER UNIT SC SCH ×5 (06:00→23:55)
[2022-06-11 06:01] LABS: ALBUMIN 2.2 GM/DL (3.2-5.2); ALT/SGPT 39 U/L (12-78); BILIRUBIN,TOTAL 1.1 MG/DL (0.2-1.0); BLOOD UREA NITROGEN 77 MG/DL (7-18); CALCIUM LEVEL 8.4 MG/DL (8.8-10.2); CARBON DIOXIDE LEVEL 22 MEQ/L (21-32); CHLORIDE LEVEL 97 MEQ/L (98-107); CREATININE FOR GFR 4.16 MG/DL (0.70-1.30); GLOMERULAR FILTRATION RATE 15.4 (>49); GLUCOSE, FASTING 83 MG/DL (70-100); MAGNESIUM LEVEL 2.5 MG/DL (1.8-2.4); POTASSIUM SERUM 4.8 MEQ/L (3.5-5.1); SODIUM LEVEL 130 MEQ/L (136-145); TOTAL PROTEIN 6.4 GM/DL (6.4-8.2)
[2022-06-11] MEDS ORDERED: SODIUM CHLORIDE 0.9% 1000ML IV PRN (06:25)
[2022-06-11] MEDS ORDERED: ACETAMINOPHEN TAB 650MG DOSE (2X325MG) PO ONE (06:40)
[2022-06-11] MEDS: [UNRECOGNIZED DRUG - REMARK] XX SCH (07:19)
[2022-06-11] MEDS: NICOTINE 7 MG/24 HR TRANSDERMAL TD SCH (08:09)
[2022-06-11 09:23] LABS: RHEUMATOID FACTOR QUANT < 10.0 IU/ML (<15.0)
[2022-06-11] MEDS: PIPERACILLIN/TAZOBACTAM SOD 4.5 GM in D5W MINI-BAG PLUS 50 ML IV SCH ×2 (11:00→23:38)
[2022-06-12] VITALS (19 sets, daily range): BP systolic 92–142; BP diastolic 46–71; O2SAT 91
[2022-06-12] MEDS: LORazepam 2 MG TAB PO PRN ×2 (01:45→02:53)
[2022-06-12] MEDS: IPRATROPIUM 0.5MG/ALBUTEROL 2.5MG INH SOL UD 3ML (DUONEB) NEB SCH ×4 (02:39→19:08)
[2022-06-12] MEDS: METOPROLOL TART 25 MG TABLET PO SCH (05:19)
[2022-06-12] MEDS: SUCRALFATE SUSP 1GM/10ML UD PO SCH (05:19)
[2022-06-12] MEDS: INSULIN LISPRO (NovoLOG) PER UNIT SC SCH ×3 (05:38→18:00)
[2022-06-12] MEDS: [UNRECOGNIZED DRUG - REMARK] XX SCH (08:05)
[2022-06-12] MEDS ORDERED: flumazeniL 0.5 MG/5 ML VIAL IV STA ×6 (08:22→10:08)
[2022-06-12] MEDS: NICOTINE 7 MG/24 HR TRANSDERMAL TD SCH (08:31)
[2022-06-12 08:35] LABS: BASO % 0.1 % (0.0-1.0); EOS # 0.2 10^3/uL (0.0-0.5); EOS % 1.1 % (0.0-3.0); HEMATOCRIT 30.7 % (42.0-52.0); HEMOGLOBIN 9.5 g/dl (13.5-17.5); LYMPH # 1.3 10^3/uL (1.5-5.0); LYMPH % 5.8 % (24.0-44.0); MEAN CORPUSCULAR HEMOGLOBIN 27.6 pg (27.0-33.0); MEAN CORPUSCULAR HGB CONC 30.9 g/dl (32.0-36.5); MEAN CORPUSCULAR VOLUME 89.2 fl (80.0-96.0); MONO % 6.9 % (2.0-8.0); NEUTROPHILS # 19.2 10^3/uL (1.5-8.5); NEUTROPHILS % 84.4 % (36.0-66.0); PLATELET COUNT, AUTOMATED 251 10^3/uL (150-450); RED BLOOD COUNT 3.44 10^6/uL (4.30-6.10); WHITE BLOOD COUNT 22.7 10^3/uL (4.0-10.0)
[2022-06-12] MEDS ORDERED: PREVNAR-20 VACCINE 0.5ML SYRINGE IM.IMMUN ONE (09:00)
[2022-06-12] MEDS ORDERED: THIAMINE 100 MG TAB PO SCH (09:00)
[2022-06-12] MEDS ORDERED: FOLIC ACID 1MG TAB PO SCH (09:00)
[2022-06-12] MEDS ORDERED: MULTIVITAMINS/MINERALS THERAP 1 TAB PO SCH (09:00)
[2022-06-12 09:08] LABS: ABG BASE EXCESS -9.7 (-2.0-2.0); ABG HCO3 21.2 MEQ/L (22.0-26.0); ABG O2 SATURATION 87.6 % (95.0-99.0); ABG PARTIAL PRESSURE O2 70.7 mmHg (75.0-100.0); ABG STANDARD HCO3 16.5 MEQ/L (22.0-26.0); ABG TOTAL CO2 23.6 MEQ/L (23.0-31.0)
[2022-06-12] MEDS ORDERED: FUROSEMIDE 100MG/10ML VIAL (J1940) IV ONE (09:10)
[2022-06-12 09:11] LABS: ABG pH (ARTERIAL) 7.054 UNITS (7.350-7.450)
[2022-06-12 09:12] LABS: ALBUMIN 2.2 GM/DL (3.2-5.2); BILIRUBIN,TOTAL 1.1 MG/DL (0.2-1.0); CALCIUM LEVEL 8.7 MG/DL (8.8-10.2); CREATININE FOR GFR 3.43 MG/DL (0.70-1.30); GLOMERULAR FILTRATION RATE 19.3 (>49); MAGNESIUM LEVEL 2.7 MG/DL (1.8-2.4); POTASSIUM SERUM 5.6 MEQ/L (3.5-5.1); TOTAL PROTEIN 6.5 GM/DL (6.4-8.2)
[2022-06-12 09:12] LABS: ABG PARTIAL PRESSURE CO2 77.8 mmHg (35.0-45.0)
[2022-06-12 09:26] LABS: MONO # 1.6 10^3/uL (0.0-0.8)
[2022-06-12 11:35] LABS: ABG BASE EXCESS -7.9 (-2.0-2.0); ABG HCO3 24.6 MEQ/L (22.0-26.0); ABG O2 SATURATION 93.6 % (95.0-99.0); ABG PARTIAL PRESSURE O2 89.4 mmHg (75.0-100.0); ABG TOTAL CO2 27.7 MEQ/L (23.0-31.0)
[2022-06-12 11:38] LABS: ABG PARTIAL PRESSURE CO2 102.4 mmHg (35.0-45.0); ABG pH (ARTERIAL) 6.998 UNITS (7.350-7.450)
[2022-06-12] MEDS: PANTOPRAZOLE 40MG VIAL IV SCH (11:54)
[2022-06-12] MEDS: HEPARIN SOD (PORCINE) 5000UNITS/ML 1ML VIAL/SYRINGE SQ SCH ×2 (11:54→19:59)
[2022-06-12] MEDS: PIPERACILLIN/TAZOBACTAM SOD 4.5 GM in D5W MINI-BAG PLUS 50 ML IV SCH ×2 (11:54→22:03)
[2022-06-12] MEDS ORDERED: LIDOCAINE 1% SDV 5ML VIAL SC PRN (12:30)
[2022-06-12] MEDS ORDERED: SODIUM CHLORIDE 0.9% 1000ML IV PRN (12:30)
[2022-06-12 14:21] LABS: ABG BASE EXCESS -2.9 (-2.0-2.0); ABG HCO3 24.1 MEQ/L (22.0-26.0); ABG O2 SATURATION 90.7 % (95.0-99.0); ABG PARTIAL PRESSURE CO2 51.6 mmHg (35.0-45.0); ABG PARTIAL PRESSURE O2 58.9 mmHg (75.0-100.0); ABG TOTAL CO2 25.7 MEQ/L (23.0-31.0); ABG pH (ARTERIAL) 7.288 UNITS (7.350-7.450)
[2022-06-12 23:58] LABS: ABG BASE EXCESS -0.5 (-2.0-2.0); ABG HCO3 24.9 MEQ/L (22.0-26.0); ABG O2 SATURATION 95.5 % (95.0-99.0); ABG PARTIAL PRESSURE CO2 44.1 mmHg (35.0-45.0); ABG PARTIAL PRESSURE O2 80.4 mmHg (75.0-100.0); ABG TOTAL CO2 26.2 MEQ/L (23.0-31.0); ABG pH (ARTERIAL) 7.369 UNITS (7.350-7.450)
[2022-06-13] VITALS (16 sets, daily range): BP systolic 106–145; BP diastolic 54–70; O2SAT 90
[2022-06-13] MEDS: PANTOPRAZOLE 40MG VIAL IV SCH ×2 (00:13→11:04)
[2022-06-13] MEDS: IPRATROPIUM 0.5MG/ALBUTEROL 2.5MG INH SOL UD 3ML (DUONEB) NEB SCH ×4 (01:18→19:13)
[2022-06-13 05:15] LABS: HEMATOCRIT 25.3 % (42.0-52.0); HEMOGLOBIN 7.8 g/dl (13.5-17.5); MEAN CORPUSCULAR HEMOGLOBIN 27.2 pg (27.0-33.0); MEAN CORPUSCULAR HGB CONC 30.8 g/dl (32.0-36.5); MEAN CORPUSCULAR VOLUME 88.2 fl (80.0-96.0); PLATELET COUNT, AUTOMATED 217 10^3/uL (150-450); RED BLOOD COUNT 2.87 10^6/uL (4.30-6.10); WHITE BLOOD COUNT 15.7 10^3/uL (4.0-10.0)
[2022-06-13 05:46] LABS: ALBUMIN 1.8 GM/DL (3.2-5.2); CALCIUM LEVEL 8.4 MG/DL (8.8-10.2); CREATININE FOR GFR 2.93 MG/DL (0.70-1.30); GLOMERULAR FILTRATION RATE 23.1 (>49); POTASSIUM SERUM 4.2 MEQ/L (3.5-5.1)
[2022-06-13] MEDS: INSULIN LISPRO (NovoLOG) PER UNIT SC SCH ×2 (05:51)
[2022-06-13] MEDS: HEPARIN SOD (PORCINE) 5000UNITS/ML 1ML VIAL/SYRINGE SQ SCH (08:06)
[2022-06-13] MEDS: [UNRECOGNIZED DRUG - REMARK] XX SCH (08:07)
[2022-06-13] MEDS: PIPERACILLIN/TAZOBACTAM SOD 4.5 GM in D5W MINI-BAG PLUS 50 ML IV SCH (11:04)
[2022-06-13 11:29] LABS: HEMATOCRIT 24.6 % (42.0-52.0); HEMOGLOBIN 7.9 g/dl (13.5-17.5); MEAN CORPUSCULAR HEMOGLOBIN 27.7 pg (27.0-33.0); MEAN CORPUSCULAR HGB CONC 32.1 g/dl (32.0-36.5); MEAN CORPUSCULAR VOLUME 86.3 fl (80.0-96.0); PLATELET COUNT, AUTOMATED 199 10^3/uL (150-450); RED BLOOD COUNT 2.85 10^6/uL (4.30-6.10); WHITE BLOOD COUNT 18.7 10^3/uL (4.0-10.0)
[2022-06-13 16:50] LABS: HEMATOCRIT 23.2 % (42.0-52.0); HEMOGLOBIN 7.4 g/dl (13.5-17.5); MEAN CORPUSCULAR HEMOGLOBIN 27.1 pg (27.0-33.0); MEAN CORPUSCULAR HGB CONC 31.9 g/dl (32.0-36.5); PLATELET COUNT, AUTOMATED 223 10^3/uL (150-450); RED BLOOD COUNT 2.73 10^6/uL (4.30-6.10); WHITE BLOOD COUNT 19.7 10^3/uL (4.0-10.0)
[2022-06-13] MEDS ORDERED: LIDOCAINE 1% SDV 5ML VIAL SC PRN (19:20)
[2022-06-14] VITALS (10 sets, daily range): BP systolic 126–160; BP diastolic 58–73; O2SAT 92
[2022-06-14] MEDS: PANTOPRAZOLE 40MG VIAL IV SCH ×2 (00:02→11:20)
[2022-06-14] MEDS: IPRATROPIUM 0.5MG/ALBUTEROL 2.5MG INH SOL UD 3ML (DUONEB) NEB SCH ×4 (01:30→19:50)
[2022-06-14 05:08] LABS: HEMOGLOBIN 7.6 g/dl (13.5-17.5); MEAN CORPUSCULAR HEMOGLOBIN 27.2 pg (27.0-33.0); MEAN CORPUSCULAR HGB CONC 31.7 g/dl (32.0-36.5); PLATELET COUNT, AUTOMATED 225 10^3/uL (150-450); RED BLOOD COUNT 2.79 10^6/uL (4.30-6.10); WHITE BLOOD COUNT 18.8 10^3/uL (4.0-10.0)
[2022-06-14 05:37] LABS: CALCIUM LEVEL 8.3 MG/DL (8.8-10.2); CREATININE FOR GFR 4.83 MG/DL (0.70-1.30); POTASSIUM SERUM 4.2 MEQ/L (3.5-5.1); TOTAL PROTEIN 5.6 GM/DL (6.4-8.2)
[2022-06-14] MEDS ORDERED: SODIUM CHLORIDE 0.9% 1000ML IV PRN (06:00)
[2022-06-14] MEDS: [UNRECOGNIZED DRUG - REMARK] XX SCH ×2 (07:31→07:32)
[2022-06-14] MEDS: BUDESONIDE 0.5 MG/2 ML INHALATION SUSPENSION INH SCH ×2 (08:00→19:50)
[2022-06-14] MEDS ORDERED: PREVNAR-20 VACCINE 0.5ML SYRINGE IM.IMMUN ONE (09:00)
[2022-06-14] MEDS: NICOTINE 14 MG/24 HR TRANSDERMAL TD SCH (11:19)
[2022-06-14] MEDS: METOPROLOL TART 25 MG TABLET NG SCH ×2 (11:19→20:50)
[2022-06-14] MEDS: DARBEPOETIN 100 MCG/0.5 ML *DIALYSIS* SYRINGE (J0882) IV SCH (11:51)
[2022-06-14] MEDS ORDERED: QUEtiapine FUMARATE 12.5 MG HALF-TAB PO PRN (13:55)
[2022-06-15] MEDS: PANTOPRAZOLE 40MG VIAL IV SCH ×4 (00:41→23:24)
[2022-06-15] MEDS: IPRATROPIUM 0.5MG/ALBUTEROL 2.5MG INH SOL UD 3ML (DUONEB) NEB SCH ×4 (02:00→19:15)
[2022-06-15] MEDS ORDERED: HALOPERIDOL 5MG/ML VIAL (J1630 PER 1) IV ONE (05:45)
[2022-06-15 05:54] LABS: HEMATOCRIT 24.3 % (42.0-52.0); HEMOGLOBIN 7.9 g/dl (13.5-17.5); MEAN CORPUSCULAR HEMOGLOBIN 27.8 pg (27.0-33.0); MEAN CORPUSCULAR HGB CONC 32.5 g/dl (32.0-36.5); MEAN CORPUSCULAR VOLUME 85.6 fl (80.0-96.0); PLATELET COUNT, AUTOMATED 254 10^3/uL (150-450); RED BLOOD COUNT 2.84 10^6/uL (4.30-6.10)
[2022-06-15 06:34] LABS: ALBUMIN 1.9 GM/DL (3.2-5.2); BILIRUBIN,TOTAL 1.2 MG/DL (0.2-1.0); CALCIUM LEVEL 8.1 MG/DL (8.8-10.2); CREATININE FOR GFR 3.24 MG/DL (0.70-1.30); GLOMERULAR FILTRATION RATE 20.6 (>49); POTASSIUM SERUM 3.5 MEQ/L (3.5-5.1); TOTAL PROTEIN 5.5 GM/DL (6.4-8.2)
[2022-06-15] MEDS: BUDESONIDE 0.5 MG/2 ML INHALATION SUSPENSION INH SCH ×2 (06:59→19:15)
[2022-06-15] MEDS ORDERED: PREVNAR-20 VACCINE 0.5ML SYRINGE IM.IMMUN ONE (09:00)
[2022-06-15 10:00] VITALS: BP 142/67
[2022-06-15] MEDS: METOPROLOL TART 25 MG TABLET NG SCH ×2 (10:24→22:40)
[2022-06-15] MEDS: NICOTINE 14 MG/24 HR TRANSDERMAL TD SCH (10:24)
[2022-06-15 14:00] VITALS: BP 142/64
[2022-06-15 18:00] VITALS: BP 146/61
[2022-06-15 20:20] VITALS: BP 137/71
[2022-06-16] VITALS (20 sets, daily range): BP systolic 103–175; BP diastolic 58–81
[2022-06-16] MEDS: IPRATROPIUM 0.5MG/ALBUTEROL 2.5MG INH SOL UD 3ML (DUONEB) NEB SCH ×4 (02:00→18:20)
[2022-06-16] MEDS ORDERED: SODIUM CHLORIDE 0.9% 1000ML IV PRN (06:00)
[2022-06-16 06:08] LABS: HEMATOCRIT 27.3 % (42.0-52.0); HEMOGLOBIN 8.7 g/dl (13.5-17.5); MEAN CORPUSCULAR HEMOGLOBIN 27.3 pg (27.0-33.0); MEAN CORPUSCULAR HGB CONC 31.9 g/dl (32.0-36.5); MEAN CORPUSCULAR VOLUME 85.6 fl (80.0-96.0); PLATELET COUNT, AUTOMATED 252 10^3/uL (150-450); RED BLOOD COUNT 3.19 10^6/uL (4.30-6.10)
[2022-06-16 06:45] LABS: ALBUMIN 1.8 GM/DL (3.2-5.2); BILIRUBIN,TOTAL 1.1 MG/DL (0.2-1.0); CALCIUM LEVEL 8.1 MG/DL (8.8-10.2); CREATININE FOR GFR 5.18 MG/DL (0.70-1.30); POTASSIUM SERUM 3.5 MEQ/L (3.5-5.1); TOTAL PROTEIN 5.4 GM/DL (6.4-8.2)
[2022-06-16] MEDS: BUDESONIDE 0.5 MG/2 ML INHALATION SUSPENSION INH SCH ×2 (07:14→18:20)
[2022-06-16] MEDS: CALCITRIOL 0.25 MCG CAP (S0169) PO SCH (09:00)
[2022-06-16] MEDS: METOPROLOL TART 25 MG TABLET NG SCH (09:00)
[2022-06-16] MEDS: PANTOPRAZOLE 40MG VIAL IV SCH ×2 (13:52→23:56)
[2022-06-16] MEDS: NICOTINE 14 MG/24 HR TRANSDERMAL TD SCH (13:52)
[2022-06-16 18:25] LABS: ABG pH (ARTERIAL) 7.289 UNITS (7.350-7.450)
[2022-06-16] MEDS ORDERED: IPRATROPIUM 0.5MG/ALBUTEROL 2.5MG INH SOL UD 3ML (DUONEB) NEB PRN (18:25)
[2022-06-16 18:26] LABS: ABG BASE EXCESS 1.9 (-2.0-2.0); ABG HCO3 29.3 MEQ/L (22.0-26.0); ABG O2 SATURATION 96.2 % (95.0-99.0); ABG PARTIAL PRESSURE O2 90.3 mmHg (75.0-100.0); ABG STANDARD HCO3 26.1 MEQ/L (22.0-26.0); ABG TOTAL CO2 31.2 MEQ/L (23.0-31.0)
[2022-06-16 18:27] LABS: ABG PARTIAL PRESSURE CO2 62.4 mmHg (35.0-45.0)
[2022-06-16] MEDS ORDERED: methylPREDNISolone 125MG 2ML VIAL IV ONE (19:00)
[2022-06-16 21:10] LABS: ABG BASE EXCESS 2.3 (-2.0-2.0); ABG HCO3 29.1 MEQ/L (22.0-26.0); ABG O2 SATURATION 98.1 % (95.0-99.0); ABG PARTIAL PRESSURE O2 114.8 mmHg (75.0-100.0); ABG STANDARD HCO3 26.6 MEQ/L (22.0-26.0); ABG TOTAL CO2 30.9 MEQ/L (23.0-31.0); ABG pH (ARTERIAL) 7.319 UNITS (7.350-7.450)
[2022-06-16] MEDS: METOPROLOL 5 MG/5 ML VIAL IV SCH (22:00)
[2022-06-17] VITALS (25 sets, daily range): BP systolic 101–164; BP diastolic 50–74
[2022-06-17] MEDS: methylPREDNISolone 125MG 2ML VIAL IV SCH ×3 (03:14→18:41)
[2022-06-17] MEDS: IPRATROPIUM 0.5MG/ALBUTEROL 2.5MG INH SOL UD 3ML (DUONEB) NEB SCH ×6 (03:19→23:39)
[2022-06-17] MEDS: METOPROLOL 5 MG/5 ML VIAL IV SCH ×4 (03:48→22:00)
[2022-06-17 04:22] LABS: ABG BASE EXCESS -0.3 (-2.0-2.0); ABG HCO3 25.9 MEQ/L (22.0-26.0); ABG O2 SATURATION 98.9 % (95.0-99.0); ABG PARTIAL PRESSURE CO2 49.7 mmHg (35.0-45.0); ABG PARTIAL PRESSURE O2 155.5 mmHg (75.0-100.0); ABG STANDARD HCO3 24.3 MEQ/L (22.0-26.0); ABG TOTAL CO2 27.4 MEQ/L (23.0-31.0); ABG pH (ARTERIAL) 7.334 UNITS (7.350-7.450)
[2022-06-17 05:03] LABS: HEMATOCRIT 27.4 % (42.0-52.0); HEMOGLOBIN 8.4 g/dl (13.5-17.5); MEAN CORPUSCULAR HEMOGLOBIN 27.2 pg (27.0-33.0); MEAN CORPUSCULAR HGB CONC 30.7 g/dl (32.0-36.5); MEAN CORPUSCULAR VOLUME 88.7 fl (80.0-96.0); PLATELET COUNT, AUTOMATED 235 10^3/uL (150-450); RED BLOOD COUNT 3.09 10^6/uL (4.30-6.10); WHITE BLOOD COUNT 13.3 10^3/uL (4.0-10.0)
[2022-06-17 05:39] LABS: ALBUMIN 1.8 GM/DL (3.2-5.2); BILIRUBIN,TOTAL 0.9 MG/DL (0.2-1.0); CALCIUM LEVEL 8.6 MG/DL (8.8-10.2); CREATININE FOR GFR 4.05 MG/DL (0.70-1.30); GLOMERULAR FILTRATION RATE 15.9 (>49); POTASSIUM SERUM 3.9 MEQ/L (3.5-5.1); TOTAL PROTEIN 6.6 GM/DL (6.4-8.2)
[2022-06-17] MEDS: BUDESONIDE 0.5 MG/2 ML INHALATION SUSPENSION INH SCH ×2 (09:14→20:05)
[2022-06-17] MEDS: PANTOPRAZOLE 40MG VIAL IV SCH ×2 (11:00→23:37)
[2022-06-17 11:40] LABS: ABG BASE EXCESS -0.5 (-2.0-2.0); ABG HCO3 26.8 MEQ/L (22.0-26.0); ABG O2 SATURATION 93.8 % (95.0-99.0); ABG PARTIAL PRESSURE O2 74.5 mmHg (75.0-100.0); ABG TOTAL CO2 28.7 MEQ/L (23.0-31.0); ABG pH (ARTERIAL) 7.267 UNITS (7.350-7.450)
[2022-06-17 11:42] LABS: ABG PARTIAL PRESSURE CO2 60.2 mmHg (35.0-45.0)
[2022-06-18] VITALS (37 sets, daily range): BP systolic 94–132; BP diastolic 52–67
[2022-06-18] MEDS: methylPREDNISolone 125MG 2ML VIAL IV SCH ×3 (03:41→19:36)
[2022-06-18] MEDS: IPRATROPIUM 0.5MG/ALBUTEROL 2.5MG INH SOL UD 3ML (DUONEB) NEB SCH ×6 (03:45→23:29)
[2022-06-18] MEDS: METOPROLOL 5 MG/5 ML VIAL IV SCH ×5 (04:00→22:19)
[2022-06-18] MEDS: HEPARIN SOD (PORCINE) 5000UNITS/ML 1ML VIAL/SYRINGE SQ SCH ×4 (06:00→22:20)
[2022-06-18] MEDS ORDERED: SODIUM CHLORIDE 0.9% 1000ML IV PRN (06:00)
[2022-06-18] MEDS ORDERED: METOPROLOL 5 MG/5 ML VIAL IV ONE (07:15)
[2022-06-18] MEDS: BUDESONIDE 0.5 MG/2 ML INHALATION SUSPENSION INH SCH ×2 (08:21→19:09)
[2022-06-18 08:51] LABS: BASO % 0.1 % (0.0-1.0); HEMATOCRIT 25.2 % (42.0-52.0); HEMOGLOBIN 7.9 g/dl (13.5-17.5); LYMPH # 0.8 10^3/uL (1.5-5.0); LYMPH % 5.3 % (24.0-44.0); MEAN CORPUSCULAR HEMOGLOBIN 28.3 pg (27.0-33.0); MEAN CORPUSCULAR HGB CONC 31.3 g/dl (32.0-36.5); MEAN CORPUSCULAR VOLUME 90.3 fl (80.0-96.0); MONO # 0.4 10^3/uL (0.0-0.8); MONO % 2.9 % (2.0-8.0); NEUTROPHILS # 12.7 10^3/uL (1.5-8.5); NEUTROPHILS % 89.9 % (36.0-66.0); PLATELET COUNT, AUTOMATED 257 10^3/uL (150-450); RED BLOOD COUNT 2.79 10^6/uL (4.30-6.10); WHITE BLOOD COUNT 14.1 10^3/uL (4.0-10.0)
[2022-06-18 09:27] LABS: ALBUMIN 2.1 GM/DL (3.2-5.2); BILIRUBIN,TOTAL 0.8 MG/DL (0.2-1.0); CALCIUM LEVEL 8.9 MG/DL (8.8-10.2); CREATININE FOR GFR 6.03 MG/DL (0.70-1.30); MAGNESIUM LEVEL 2.9 MG/DL (1.8-2.4); PHOSPHORUS LEVEL 6.8 MG/DL (2.5-4.9); POTASSIUM SERUM 4.3 MEQ/L (3.5-5.1)
[2022-06-18] MEDS: CALCITRIOL 0.25 MCG CAP (S0169) PO SCH (10:53)
[2022-06-18] MEDS: PANTOPRAZOLE 40MG VIAL IV SCH ×2 (11:44→23:30)
[2022-06-18 17:04] LABS: ABG BASE EXCESS -1.8 (-2.0-2.0); ABG HCO3 24.7 MEQ/L (22.0-26.0); ABG O2 SATURATION 96.8 % (95.0-99.0); ABG PARTIAL PRESSURE CO2 51.3 mmHg (35.0-45.0); ABG PARTIAL PRESSURE O2 93.7 mmHg (75.0-100.0); ABG STANDARD HCO3 22.9 MEQ/L (22.0-26.0); ABG TOTAL CO2 26.2 MEQ/L (23.0-31.0)
[2022-06-19] VITALS (12 sets, daily range): BP systolic 112–128; BP diastolic 56–72; O2SAT 91
[2022-06-19] MEDS: methylPREDNISolone 125MG 2ML VIAL IV SCH (03:15)
[2022-06-19] MEDS: IPRATROPIUM 0.5MG/ALBUTEROL 2.5MG INH SOL UD 3ML (DUONEB) NEB SCH ×6 (04:00→23:23)
[2022-06-19 04:46] LABS: HEMOGLOBIN 7.3 g/dl (13.5-17.5); MEAN CORPUSCULAR HEMOGLOBIN 28.1 pg (27.0-33.0); MEAN CORPUSCULAR HGB CONC 31.7 g/dl (32.0-36.5); MEAN CORPUSCULAR VOLUME 88.5 fl (80.0-96.0); PLATELET COUNT, AUTOMATED 230 10^3/uL (150-450); WHITE BLOOD COUNT 11.6 10^3/uL (4.0-10.0)
[2022-06-19] MEDS: METOPROLOL 5 MG/5 ML VIAL IV SCH (05:05)
[2022-06-19 05:22] LABS: ALBUMIN 2.1 GM/DL (3.2-5.2); BILIRUBIN,TOTAL 0.7 MG/DL (0.2-1.0); CALCIUM LEVEL 8.7 MG/DL (8.8-10.2); CREATININE FOR GFR 3.58 MG/DL (0.70-1.30); GLOMERULAR FILTRATION RATE 18.3 (>49); POTASSIUM SERUM 3.8 MEQ/L (3.5-5.1); TOTAL PROTEIN 5.8 GM/DL (6.4-8.2)
[2022-06-19] MEDS: HEPARIN SOD (PORCINE) 5000UNITS/ML 1ML VIAL/SYRINGE SQ SCH ×4 (05:42→21:06)
[2022-06-19] MEDS: BUDESONIDE 0.5 MG/2 ML INHALATION SUSPENSION INH SCH ×2 (07:25→19:47)
[2022-06-19] MEDS ORDERED: PIPERACILLIN/TAZOBACTAM SOD 2.25 GM in D5W MINI-BAG PLUS 50 ML IV SCH (09:10)
[2022-06-19] MEDS: PIPERACILLIN/TAZOBACTAM SOD 4.5 GM in D5W MINI-BAG PLUS 50 ML IV SCH ×2 (11:11→21:06)
[2022-06-19] MEDS: methylPREDNISolone 40MG 1ML VIAL IV SCH ×2 (11:12→18:16)
[2022-06-19] MEDS: PANTOPRAZOLE 40MG VIAL IV SCH (11:13)
[2022-06-19] MEDS: METOPROLOL TART 25 MG TABLET PO SCH ×2 (11:13→21:05)
[2022-06-19] MEDS: OLANZapine ORAL DISINTEGRATING TAB 5MG PO PRN (21:06)
[2022-06-20] VITALS (7 sets, daily range): BP systolic 131–165; BP diastolic 61–81
[2022-06-20] MEDS: PANTOPRAZOLE 40MG VIAL IV SCH ×2 (00:13→11:27)
[2022-06-20] MEDS: IPRATROPIUM 0.5MG/ALBUTEROL 2.5MG INH SOL UD 3ML (DUONEB) NEB SCH ×6 (03:18→23:35)
[2022-06-20] MEDS: methylPREDNISolone 40MG 1ML VIAL IV SCH ×3 (03:48→17:37)
[2022-06-20] MEDS: HEPARIN SOD (PORCINE) 5000UNITS/ML 1ML VIAL/SYRINGE SQ SCH ×3 (05:31→21:06)
[2022-06-20 05:41] LABS: ABG BASE EXCESS -3.2 (-2.0-2.0); ABG HCO3 21.7 MEQ/L (22.0-26.0); ABG O2 SATURATION 87.4 % (95.0-99.0); ABG PARTIAL PRESSURE CO2 37.7 mmHg (35.0-45.0); ABG PARTIAL PRESSURE O2 54.5 mmHg (75.0-100.0); ABG STANDARD HCO3 21.7 MEQ/L (22.0-26.0); ABG TOTAL CO2 22.8 MEQ/L (23.0-31.0); ABG pH (ARTERIAL) 7.377 UNITS (7.350-7.450)
[2022-06-20] MEDS ORDERED: SODIUM CHLORIDE 0.9% 1000ML IV PRN (06:00)
[2022-06-20] MEDS: OLANZapine ORAL DISINTEGRATING TAB 5MG PO PRN ×2 (07:23→23:57)
[2022-06-20] MEDS: CALCITRIOL 0.25 MCG CAP (S0169) PO SCH (08:13)
[2022-06-20] MEDS: BUDESONIDE 0.5 MG/2 ML INHALATION SUSPENSION INH SCH ×2 (08:26→19:42)
[2022-06-20] MEDS: METOPROLOL TART 25 MG TABLET PO SCH ×2 (09:00→21:00)
[2022-06-20] MEDS: PIPERACILLIN/TAZOBACTAM SOD 4.5 GM in D5W MINI-BAG PLUS 50 ML IV SCH ×2 (09:20→22:00)
[2022-06-20] MEDS: DARBEPOETIN 100 MCG/0.5 ML *DIALYSIS* SYRINGE (J0882) IV SCH (13:17)
[2022-06-20] MEDS ORDERED: OLANZapine INTRAMUSCULAR 10MG VIAL IM ONE (19:25)
[2022-06-21] MEDS: PANTOPRAZOLE 40MG VIAL IV SCH
[2022-06-21] MEDS: methylPREDNISolone 40MG 1ML VIAL IV SCH ×3 (03:17→18:16)
[2022-06-21] MEDS: IPRATROPIUM 0.5MG/ALBUTEROL 2.5MG INH SOL UD 3ML (DUONEB) NEB SCH ×6 (03:50→23:24)
[2022-06-21 04:00] VITALS: BP 155/84
[2022-06-21] MEDS ORDERED: OLANZapine INTRAMUSCULAR 10MG VIAL IM ONE (04:00)
[2022-06-21] MEDS: HEPARIN SOD (PORCINE) 5000UNITS/ML 1ML VIAL/SYRINGE SQ SCH ×3 (05:06→21:14)
[2022-06-21 07:28] VITALS: O2SAT 86
[2022-06-21] MEDS: BUDESONIDE 0.5 MG/2 ML INHALATION SUSPENSION INH SCH ×2 (07:30→19:54)
[2022-06-21 07:54] VITALS: BP 143/65
[2022-06-21 08:37] LABS: HEMATOCRIT 26.7 % (42.0-52.0); HEMOGLOBIN 8.7 g/dl (13.5-17.5); MEAN CORPUSCULAR HEMOGLOBIN 28.1 pg (27.0-33.0); MEAN CORPUSCULAR HGB CONC 32.6 g/dl (32.0-36.5); MEAN CORPUSCULAR VOLUME 86.1 fl (80.0-96.0); PLATELET COUNT, AUTOMATED 233 10^3/uL (150-450); WHITE BLOOD COUNT 14.4 10^3/uL (4.0-10.0)
[2022-06-21 09:00] LABS: ALBUMIN 2.3 GM/DL (3.2-5.2); CALCIUM LEVEL 9.1 MG/DL (8.8-10.2); CREATININE FOR GFR 3.53 MG/DL (0.70-1.30); GLOMERULAR FILTRATION RATE 18.6 (>49); PHOSPHORUS LEVEL 2.3 MG/DL (2.5-4.9); POTASSIUM SERUM 3.2 MEQ/L (3.5-5.1)
[2022-06-21] MEDS: PANTOPRAZOLE 40MG TAB (PROTONIX) PO SCH ×2 (09:23→21:15)
[2022-06-21] MEDS: METOPROLOL TART 25 MG TABLET PO SCH ×2 (09:23→21:15)
[2022-06-21] MEDS: PIPERACILLIN/TAZOBACTAM SOD 4.5 GM in D5W MINI-BAG PLUS 50 ML IV SCH ×2 (09:24→21:14)
[2022-06-21 11:03] VITALS: BP 161/79
[2022-06-21 15:45] VITALS: BP 170/71
[2022-06-21] MEDS: OLANZapine ORAL DISINTEGRATING TAB 5MG PO PRN (16:10)
[2022-06-21 20:00] VITALS: BP 184/86
[2022-06-22] VITALS: BP 159/78
[2022-06-22] MEDS: IPRATROPIUM 0.5MG/ALBUTEROL 2.5MG INH SOL UD 3ML (DUONEB) NEB SCH ×6 (03:16→23:40)
[2022-06-22] MEDS: methylPREDNISolone 40MG 1ML VIAL IV SCH ×3 (03:44→18:41)
[2022-06-22] MEDS: OLANZapine ORAL DISINTEGRATING TAB 5MG PO PRN (03:44)
[2022-06-22 04:00] VITALS: BP 159/80
[2022-06-22] MEDS: HEPARIN SOD (PORCINE) 5000UNITS/ML 1ML VIAL/SYRINGE SQ SCH ×3 (06:00→21:58)
[2022-06-22 06:55] LABS: CALCIUM LEVEL 8.7 MG/DL (8.8-10.2); CREATININE FOR GFR 5.01 MG/DL (0.70-1.30); GLOMERULAR FILTRATION RATE 12.4 (>49); POTASSIUM SERUM 3.1 MEQ/L (3.5-5.1)
[2022-06-22] MEDS: BUDESONIDE 0.5 MG/2 ML INHALATION SUSPENSION INH SCH ×2 (08:00→20:00)
[2022-06-22 08:25] VITALS: BP 159/73
[2022-06-22] MEDS: METOPROLOL TART 25 MG TABLET PO SCH ×2 (09:05→21:57)
[2022-06-22] MEDS: PANTOPRAZOLE 40MG TAB (PROTONIX) PO SCH ×2 (09:05→21:57)
[2022-06-22] MEDS: PIPERACILLIN/TAZOBACTAM SOD 4.5 GM in D5W MINI-BAG PLUS 50 ML IV SCH ×2 (09:05→21:58)
[2022-06-22] MEDS ORDERED: POTASSIUM CHLORIDE 10MEQ SR TABLET PO ONE (09:30)
[2022-06-22 11:58] VITALS: BP 153/67
[2022-06-22 15:24] VITALS: BP 145/69
[2022-06-22 21:51] VITALS: BP 159/69
[2022-06-23 01:40] VITALS: BP 121/67
[2022-06-23] MEDS: methylPREDNISolone 40MG 1ML VIAL IV SCH ×3 (02:13→18:45)
[2022-06-23] MEDS: IPRATROPIUM 0.5MG/ALBUTEROL 2.5MG INH SOL UD 3ML (DUONEB) NEB SCH ×5 (04:00→20:24)
[2022-06-23 06:07] LABS: HEMATOCRIT 27.6 % (42.0-52.0); MEAN CORPUSCULAR HEMOGLOBIN 28.1 pg (27.0-33.0); MEAN CORPUSCULAR HGB CONC 32.6 g/dl (32.0-36.5); MEAN CORPUSCULAR VOLUME 86.3 fl (80.0-96.0); PLATELET COUNT, AUTOMATED 230 10^3/uL (150-450); WHITE BLOOD COUNT 12.2 10^3/uL (4.0-10.0)
[2022-06-23] MEDS: CALCITRIOL 0.25 MCG CAP (S0169) PO SCH (06:23)
[2022-06-23] MEDS: PANTOPRAZOLE 40MG TAB (PROTONIX) PO SCH ×2 (06:23→21:40)
[2022-06-23] MEDS: HEPARIN SOD (PORCINE) 5000UNITS/ML 1ML VIAL/SYRINGE SQ SCH ×3 (06:23→21:40)
[2022-06-23] MEDS ORDERED: SODIUM CHLORIDE 0.9% 1000ML IV PRN (06:35)
[2022-06-23 06:51] LABS: ALBUMIN 2.2 GM/DL (3.2-5.2); CALCIUM LEVEL 8.6 MG/DL (8.8-10.2); CREATININE FOR GFR 6.04 MG/DL (0.70-1.30); PHOSPHORUS LEVEL 4.8 MG/DL (2.5-4.9); POTASSIUM SERUM 4.2 MEQ/L (3.5-5.1)
[2022-06-23] MEDS: BUDESONIDE 0.5 MG/2 ML INHALATION SUSPENSION INH SCH ×2 (07:08→20:24)
[2022-06-23] MEDS: METOPROLOL TART 25 MG TABLET PO SCH ×2 (09:00→21:40)
[2022-06-23] MEDS: PIPERACILLIN/TAZOBACTAM SOD 4.5 GM in D5W MINI-BAG PLUS 50 ML IV SCH ×2 (10:35→21:40)
[2022-06-23 16:30] VITALS: BP 154/72
[2022-06-23 22:00] VITALS: BP 117/56
[2022-06-24] MEDS: methylPREDNISolone 40MG 1ML VIAL IV SCH ×3 (02:59→18:09)
[2022-06-24] MEDS: IPRATROPIUM 0.5MG/ALBUTEROL 2.5MG INH SOL UD 3ML (DUONEB) NEB SCH ×6 (03:00→20:37)
[2022-06-24 06:00] VITALS: BP 100/56
[2022-06-24] MEDS: HEPARIN SOD (PORCINE) 5000UNITS/ML 1ML VIAL/SYRINGE SQ SCH ×3 (06:35→20:58)
[2022-06-24] MEDS: BUDESONIDE 0.5 MG/2 ML INHALATION SUSPENSION INH SCH ×2 (07:41→20:37)
[2022-06-24] MEDS: METOPROLOL TART 25 MG TABLET PO SCH ×2 (09:00→20:59)
[2022-06-24] MEDS: PANTOPRAZOLE 40MG TAB (PROTONIX) PO SCH ×2 (09:54→20:58)
[2022-06-24] MEDS: NICOTINE 14 MG/24 HR TRANSDERMAL TD SCH (11:46)
[2022-06-24 14:00] VITALS: BP 123/53
[2022-06-24 22:00] VITALS: BP 133/65
[2022-06-25] MEDS: methylPREDNISolone 40MG 1ML VIAL IV SCH (03:49)
[2022-06-25] MEDS: IPRATROPIUM 0.5MG/ALBUTEROL 2.5MG INH SOL UD 3ML (DUONEB) NEB SCH ×6 (04:00→20:06)
[2022-06-25 05:11] VITALS: BP 133/58
[2022-06-25 06:11] VITALS: BP 134/61
[2022-06-25] MEDS: METOPROLOL TART 25 MG TABLET PO SCH ×2 (06:33→20:44)
[2022-06-25] MEDS: CALCITRIOL 0.25 MCG CAP (S0169) PO SCH (06:33)
[2022-06-25] MEDS: HEPARIN SOD (PORCINE) 5000UNITS/ML 1ML VIAL/SYRINGE SQ SCH ×3 (06:33→20:44)
[2022-06-25] MEDS: NICOTINE 14 MG/24 HR TRANSDERMAL TD SCH (06:33)
[2022-06-25] MEDS: PANTOPRAZOLE 40MG TAB (PROTONIX) PO SCH ×2 (06:33→20:44)
[2022-06-25] MEDS ORDERED: SODIUM CHLORIDE 0.9% 1000ML IV PRN (06:45)
[2022-06-25] MEDS: BUDESONIDE 0.5 MG/2 ML INHALATION SUSPENSION INH SCH ×2 (06:59→20:06)
[2022-06-25 08:10] LABS: BASO % 0.1 % (0.0-1.0); EOS % 0.1 % (0.0-3.0); HEMOGLOBIN 8.7 g/dl (13.5-17.5); LYMPH # 0.4 10^3/uL (1.5-5.0); MEAN CORPUSCULAR HGB CONC 31.1 g/dl (32.0-36.5); MONO # 0.6 10^3/uL (0.0-0.8); MONO % 4.7 % (2.0-8.0); NEUTROPHILS # 11.5 10^3/uL (1.5-8.5); PLATELET COUNT, AUTOMATED 309 10^3/uL (150-450); RED BLOOD COUNT 3.11 10^6/uL (4.30-6.10); WHITE BLOOD COUNT 12.6 10^3/uL (4.0-10.0)
[2022-06-25 08:39] LABS: C REACTIVE PROTEIN QUANTITATIV 0.66 MG/DL (0.00-0.30); ERYTHROCYTE SEDIMENTATION RATE 41 mm/hr (0-20)
[2022-06-25 08:39] LABS: CREATININE FOR GFR 5.03 MG/DL (0.70-1.30); GLOMERULAR FILTRATION RATE 12.4 (>49); POTASSIUM SERUM 4.6 MEQ/L (3.5-5.1)
[2022-06-25] MEDS ORDERED: predniSONE 10 MG TAB PO SCH (09:00)
[2022-06-25 20:12] VITALS: O2SAT 21
[2022-06-26] MEDS: IPRATROPIUM 0.5MG/ALBUTEROL 2.5MG INH SOL UD 3ML (DUONEB) NEB SCH ×7 (00:39→23:57)
[2022-06-26 05:31] VITALS: BP 161/87
[2022-06-26] MEDS: HEPARIN SOD (PORCINE) 5000UNITS/ML 1ML VIAL/SYRINGE SQ SCH ×3 (05:38→21:42)
[2022-06-26 06:56] LABS: BASO % 0.1 % (0.0-1.0); EOS # 0.1 10^3/uL (0.0-0.5); EOS % 0.9 % (0.0-3.0); HEMATOCRIT 27.8 % (42.0-52.0); HEMOGLOBIN 8.8 g/dl (13.5-17.5); LYMPH # 1.1 10^3/uL (1.5-5.0); LYMPH % 10.2 % (24.0-44.0); MEAN CORPUSCULAR HEMOGLOBIN 28.6 pg (27.0-33.0); MEAN CORPUSCULAR HGB CONC 31.7 g/dl (32.0-36.5); MEAN CORPUSCULAR VOLUME 90.3 fl (80.0-96.0); MONO % 8.7 % (2.0-8.0); NEUTROPHILS # 8.7 10^3/uL (1.5-8.5); NEUTROPHILS % 79.3 % (36.0-66.0); PLATELET COUNT, AUTOMATED 332 10^3/uL (150-450); RED BLOOD COUNT 3.08 10^6/uL (4.30-6.10); WHITE BLOOD COUNT 10.9 10^3/uL (4.0-10.0)
[2022-06-26] MEDS: BUDESONIDE 0.5 MG/2 ML INHALATION SUSPENSION INH SCH ×2 (07:29→20:00)
[2022-06-26 07:38] LABS: CALCIUM LEVEL 8.7 MG/DL (8.8-10.2); CREATININE FOR GFR 2.96 MG/DL (0.70-1.30); GLOMERULAR FILTRATION RATE 22.8 (>49); POTASSIUM SERUM 3.9 MEQ/L (3.5-5.1)
[2022-06-26] MEDS: predniSONE 10 MG TAB PO SCH (08:43)
[2022-06-26] MEDS: PANTOPRAZOLE 40MG TAB (PROTONIX) PO SCH ×2 (08:43→20:36)
[2022-06-26] MEDS: NICOTINE 14 MG/24 HR TRANSDERMAL TD SCH (08:43)
[2022-06-26] MEDS: METOPROLOL TART 25 MG TABLET PO SCH ×2 (08:44→20:37)
[2022-06-26 14:00] VITALS: BP 144/64
[2022-06-26 20:05] VITALS: BP 142/64
[2022-06-27] MEDS: IPRATROPIUM 0.5MG/ALBUTEROL 2.5MG INH SOL UD 3ML (DUONEB) NEB SCH ×5 (04:00→20:46)
[2022-06-27 05:38] VITALS: BP 157/72
[2022-06-27 05:46] LABS: BASO % 0.1 % (0.0-1.0); EOS # 0.1 10^3/uL (0.0-0.5); EOS % 0.9 % (0.0-3.0); HEMATOCRIT 27.6 % (42.0-52.0); HEMOGLOBIN 8.5 g/dl (13.5-17.5); MEAN CORPUSCULAR HEMOGLOBIN 28.1 pg (27.0-33.0); MEAN CORPUSCULAR HGB CONC 30.8 g/dl (32.0-36.5); MEAN CORPUSCULAR VOLUME 91.4 fl (80.0-96.0); MONO # 1.1 10^3/uL (0.0-0.8); NEUTROPHILS % 81.3 % (36.0-66.0); PLATELET COUNT, AUTOMATED 374 10^3/uL (150-450); RED BLOOD COUNT 3.02 10^6/uL (4.30-6.10); WHITE BLOOD COUNT 12.3 10^3/uL (4.0-10.0)
[2022-06-27] MEDS: CALCITRIOL 0.25 MCG CAP (S0169) PO SCH (06:12)
[2022-06-27] MEDS: NICOTINE 14 MG/24 HR TRANSDERMAL TD SCH (06:12)
[2022-06-27] MEDS: predniSONE 10 MG TAB PO SCH (06:12)
[2022-06-27] MEDS: PANTOPRAZOLE 40MG TAB (PROTONIX) PO SCH ×2 (06:12→21:20)
[2022-06-27] MEDS: HEPARIN SOD (PORCINE) 5000UNITS/ML 1ML VIAL/SYRINGE SQ SCH ×3 (06:13→21:20)
[2022-06-27 06:24] LABS: CALCIUM LEVEL 8.5 MG/DL (8.8-10.2); CREATININE FOR GFR 4.26 MG/DL (0.70-1.30); POTASSIUM SERUM 4.2 MEQ/L (3.5-5.1)
[2022-06-27] MEDS ORDERED: SODIUM CHLORIDE 0.9% 1000ML IV PRN (07:10)
[2022-06-27] MEDS ORDERED: LIDOCAINE 1% SDV 5ML VIAL SC PRN (07:10)
[2022-06-27] MEDS: BUDESONIDE 0.5 MG/2 ML INHALATION SUSPENSION INH SCH ×2 (07:40→20:46)
[2022-06-27] MEDS: DARBEPOETIN 100 MCG/0.5 ML *DIALYSIS* SYRINGE (J0882) IV SCH (08:16)
[2022-06-27] MEDS: IRON SUCROSE 100MG 5ML VIAL (J1756 PER 1MG) IV SCH (08:55)
[2022-06-27] MEDS: METOPROLOL TART 25 MG TABLET PO SCH ×2 (12:09→21:23)
[2022-06-27 14:30] VITALS: BP 136/68
[2022-06-27 21:20] VITALS: BP 150/68
[2022-06-28] MEDS: IPRATROPIUM 0.5MG/ALBUTEROL 2.5MG INH SOL UD 3ML (DUONEB) NEB SCH ×6 (04:00→19:53)
[2022-06-28] MEDS: HEPARIN SOD (PORCINE) 5000UNITS/ML 1ML VIAL/SYRINGE SQ SCH ×3 (05:42→20:21)
[2022-06-28 05:47] VITALS: BP 114/52
[2022-06-28 06:56] LABS: BASO % 0.1 % (0.0-1.0); EOS # 0.1 10^3/uL (0.0-0.5); EOS % 1.4 % (0.0-3.0); HEMOGLOBIN 8.7 g/dl (13.5-17.5); LYMPH # 1.8 10^3/uL (1.5-5.0); LYMPH % 17.6 % (24.0-44.0); MEAN CORPUSCULAR HEMOGLOBIN 28.3 pg (27.0-33.0); MEAN CORPUSCULAR VOLUME 94.5 fl (80.0-96.0); MONO % 10.2 % (2.0-8.0); NEUTROPHILS % 69.3 % (36.0-66.0); PLATELET COUNT, AUTOMATED 372 10^3/uL (150-450); RED BLOOD COUNT 3.07 10^6/uL (4.30-6.10); WHITE BLOOD COUNT 10.1 10^3/uL (4.0-10.0)
[2022-06-28] MEDS: BUDESONIDE 0.5 MG/2 ML INHALATION SUSPENSION INH SCH ×2 (07:17→19:53)
[2022-06-28 07:28] LABS: CALCIUM LEVEL 8.1 MG/DL (8.8-10.2); CREATININE FOR GFR 2.97 MG/DL (0.70-1.30); GLOMERULAR FILTRATION RATE 22.7 (>49); POTASSIUM SERUM 3.7 MEQ/L (3.5-5.1)
[2022-06-28] MEDS: predniSONE 10 MG TAB PO SCH (09:28)
[2022-06-28] MEDS: NICOTINE 14 MG/24 HR TRANSDERMAL TD SCH (09:28)
[2022-06-28] MEDS: METOPROLOL TART 25 MG TABLET PO SCH ×2 (09:28→20:28)
[2022-06-28] MEDS: PANTOPRAZOLE 40MG TAB (PROTONIX) PO SCH ×2 (09:28→20:21)
[2022-06-28 21:26] VITALS: BP 112/48
[2022-06-29] MEDS: IPRATROPIUM 0.5MG/ALBUTEROL 2.5MG INH SOL UD 3ML (DUONEB) NEB SCH ×7 (04:00→23:29)
[2022-06-29 05:37] VITALS: BP 141/65
[2022-06-29] MEDS: HEPARIN SOD (PORCINE) 5000UNITS/ML 1ML VIAL/SYRINGE SQ SCH ×3 (06:16→20:33)
[2022-06-29] MEDS: BUDESONIDE 0.5 MG/2 ML INHALATION SUSPENSION INH SCH ×2 (07:16→19:05)
[2022-06-29 08:10] LABS: BASO % 0.2 % (0.0-1.0); EOS # 0.1 10^3/uL (0.0-0.5); EOS % 1.3 % (0.0-3.0); HEMATOCRIT 29.3 % (42.0-52.0); HEMOGLOBIN 9.1 g/dl (13.5-17.5); LYMPH # 1.8 10^3/uL (1.5-5.0); LYMPH % 15.7 % (24.0-44.0); MEAN CORPUSCULAR HEMOGLOBIN 29.2 pg (27.0-33.0); MEAN CORPUSCULAR HGB CONC 31.1 g/dl (32.0-36.5); MEAN CORPUSCULAR VOLUME 93.9 fl (80.0-96.0); MONO # 1.2 10^3/uL (0.0-0.8); NEUTROPHILS # 7.8 10^3/uL (1.5-8.5); PLATELET COUNT, AUTOMATED 420 10^3/uL (150-450); RED BLOOD COUNT 3.12 10^6/uL (4.30-6.10); WHITE BLOOD COUNT 11.2 10^3/uL (4.0-10.0)
[2022-06-29 08:34] LABS: CALCIUM LEVEL 8.5 MG/DL (8.8-10.2); CREATININE FOR GFR 4.19 MG/DL (0.70-1.30); GLOMERULAR FILTRATION RATE 15.3 (>49); POTASSIUM SERUM 4.3 MEQ/L (3.5-5.1)
[2022-06-29] MEDS: METOPROLOL TART 25 MG TABLET PO SCH ×2 (09:32→20:33)
[2022-06-29] MEDS: predniSONE 10 MG TAB PO SCH (09:32)
[2022-06-29] MEDS: NICOTINE 14 MG/24 HR TRANSDERMAL TD SCH (09:32)
[2022-06-29] MEDS: PANTOPRAZOLE 40MG TAB (PROTONIX) PO SCH ×2 (09:32→20:33)
[2022-06-30] MEDS: IPRATROPIUM 0.5MG/ALBUTEROL 2.5MG INH SOL UD 3ML (DUONEB) NEB SCH ×2 (03:28→07:24)
[2022-06-30 06:00] VITALS: BP 148/80
[2022-06-30] MEDS ORDERED: SODIUM CHLORIDE 0.9% 1000ML IV PRN (06:00)
[2022-06-30] MEDS: CALCITRIOL 0.25 MCG CAP (S0169) PO SCH (06:30)
[2022-06-30] MEDS: PANTOPRAZOLE 40MG TAB (PROTONIX) PO SCH ×2 (06:30→21:12)
[2022-06-30] MEDS: HEPARIN SOD (PORCINE) 5000UNITS/ML 1ML VIAL/SYRINGE SQ SCH ×3 (06:30→21:12)
[2022-06-30] MEDS: predniSONE 10 MG TAB PO SCH (06:31)
[2022-06-30] MEDS: NICOTINE 14 MG/24 HR TRANSDERMAL TD SCH (06:36)
[2022-06-30 06:43] LABS: BASO % 0.2 % (0.0-1.0); EOS # 0.1 10^3/uL (0.0-0.5); EOS % 0.9 % (0.0-3.0); HEMATOCRIT 27.5 % (42.0-52.0); HEMOGLOBIN 8.4 g/dl (13.5-17.5); LYMPH # 1.4 10^3/uL (1.5-5.0); LYMPH % 13.4 % (24.0-44.0); MEAN CORPUSCULAR HGB CONC 30.5 g/dl (32.0-36.5); MEAN CORPUSCULAR VOLUME 94.8 fl (80.0-96.0); MONO # 1.2 10^3/uL (0.0-0.8); MONO % 11.5 % (2.0-8.0); NEUTROPHILS # 7.2 10^3/uL (1.5-8.5); NEUTROPHILS % 71.5 % (36.0-66.0); PLATELET COUNT, AUTOMATED 396 10^3/uL (150-450); WHITE BLOOD COUNT 10.1 10^3/uL (4.0-10.0)
[2022-06-30] MEDS: BUDESONIDE 0.5 MG/2 ML INHALATION SUSPENSION INH SCH (07:24)
[2022-06-30 07:26] LABS: CALCIUM LEVEL 8.5 MG/DL (8.8-10.2); CREATININE FOR GFR 4.81 MG/DL (0.70-1.30); POTASSIUM SERUM 4.7 MEQ/L (3.5-5.1)
[2022-06-30] MEDS: METOPROLOL TART 25 MG TABLET PO SCH ×2 (08:56→21:13)
[2022-06-30] MEDS: IRON SUCROSE 100MG 5ML VIAL (J1756 PER 1MG) IV SCH (09:22)
[2022-06-30 14:40] VITALS: BP 158/87
[2022-07-01] MEDS: HEPARIN SOD (PORCINE) 5000UNITS/ML 1ML VIAL/SYRINGE SQ SCH ×2 (05:30→14:52)
[2022-07-01 06:00] VITALS: BP 147/81
[2022-07-01 06:20] LABS: BASO % 0.3 % (0.0-1.0); EOS # 0.2 10^3/uL (0.0-0.5); EOS % 1.8 % (0.0-3.0); HEMOGLOBIN 8.8 g/dl (13.5-17.5); LYMPH # 2.4 10^3/uL (1.5-5.0); LYMPH % 22.4 % (24.0-44.0); MEAN CORPUSCULAR HEMOGLOBIN 29.1 pg (27.0-33.0); MEAN CORPUSCULAR HGB CONC 30.3 g/dl (32.0-36.5); MONO # 1.3 10^3/uL (0.0-0.8); MONO % 12.2 % (2.0-8.0); NEUTROPHILS # 6.4 10^3/uL (1.5-8.5); NEUTROPHILS % 60.4 % (36.0-66.0); RED BLOOD COUNT 3.02 10^6/uL (4.30-6.10); WHITE BLOOD COUNT 10.5 10^3/uL (4.0-10.0)
[2022-07-01 06:48] LABS: PLATELET COUNT, AUTOMATED 223 10^3/uL (150-450)
[2022-07-01 06:54] LABS: CALCIUM LEVEL 7.8 MG/DL (8.8-10.2); CREATININE FOR GFR 3.05 MG/DL (0.70-1.30); POTASSIUM SERUM 3.6 MEQ/L (3.5-5.1)
[2022-07-01] MEDS: PANTOPRAZOLE 40MG TAB (PROTONIX) PO SCH (10:00)
[2022-07-01] MEDS: NICOTINE 14 MG/24 HR TRANSDERMAL TD SCH (10:00)
[2022-07-01] MEDS: predniSONE 10 MG TAB PO SCH (10:00)
[2022-07-01 10:01] VITALS: BP 147/81
[2022-07-01] MEDS: METOPROLOL TART 25 MG TABLET PO SCH (10:01)
[2022-07-01] MEDS ORDERED: CALC1CAP31 PO (12:50)
[2022-07-02] MEDS ORDERED: SODIUM CHLORIDE 0.9% 1000ML IV PRN (06:00)
== END 2022-07-01 15:25 | disposition home or self-care (01) | DRG 208 ==
LOC: M ED 00:23 → M MSPAV 03:22 → M ED INP 03:22 → ENRESERV 13:38 → M MSPAV 14:36 → M ICU 06-07 01:34 → M MSPAV 06-14 22:54 → M ICU 06-16 18:47 → M PCU 06-19 19:22 → M MS5PR 06-23 01:38
PROVIDERS: ADMIT Internal Medicine; ATTEND Internal Medicine
PROC: 0JH63XZ Insertion of Tunneled Vascular Access Device into Chest Subcutaneous Tissue and Fascia, Percutaneous Approach (ICD-10-PCS; 2022-06-06)
PROC: B51MYZA Fluoroscopy of Right Upper Extremity Veins using Other Contrast, Guidance (ICD-10-PCS; 2022-06-06)
PROC: B246ZZZ Ultrasonography of Right and Left Heart (ICD-10-PCS; 2022-06-07)
PROC: 5A1945Z Respiratory Ventilation, 24-96 Consecutive Hours (ICD-10-PCS; principal; 2022-06-09)
PROC: 30233N1 Transfusion of Nonautologous Red Blood Cells into Peripheral Vein, Percutaneous Approach (ICD-10-PCS; 2022-06-09)
DX: J15.6 Pneumonia due to other Gram-negative bacteria (principal); A41.9 Sepsis, unspecified organism; J96.01 Acute respiratory failure with hypoxia; G93.41 Metabolic encephalopathy; N18.6 End stage renal disease; G92.8 Other toxic encephalopathy; R65.20 Severe sepsis without septic shock; J44.1 Chronic obstructive pulmonary disease with (acute) exacerbation; J44.0 Chronic obstructive pulmonary disease with (acute) lower respiratory infection; N17.9 Acute kidney failure, unspecified; R04.2 Hemoptysis; E87.20 Acidosis, unspecified; I13.2 Hypertensive heart and chronic kidney disease with heart failure and with stage 5 chronic kidney disease, or end stage renal disease; E87.1 Hypo-osmolality and hyponatremia; I48.92 Unspecified atrial flutter; R18.8 Other ascites; I45.2 Bifascicular block; K92.0 Hematemesis; D62 Acute posthemorrhagic anemia; K92.2 Gastrointestinal hemorrhage, unspecified; I50.32 Chronic diastolic (congestive) heart failure; I24.8 Other forms of acute ischemic heart disease; D68.32 Hemorrhagic disorder due to extrinsic circulating anticoagulants; Z66 Do not resuscitate; F17.210 Nicotine dependence, cigarettes, uncomplicated; I48.91 Unspecified atrial fibrillation; Z20.822 Contact with and (suspected) exposure to COVID-19; Z79.01 Long term (current) use of anticoagulants; Z79.899 Other long term (current) drug therapy; E78.5 Hyperlipidemia, unspecified; E11.22 Type 2 diabetes mellitus with diabetic chronic kidney disease; I25.10 Atherosclerotic heart disease of native coronary artery without angina pectoris; K21.00 Gastro-esophageal reflux disease with esophagitis, without bleeding; R44.1 Visual hallucinations

== ENCOUNTER 2022-07-09 07:26 | Inpatient (IN) | payer MEDICARE, BC, OTHER ==
[~2022-07-09] VITALS: Ht 170.2 cm; Wt 66.2 kg
[~2022-07-09 07:26] MED LIST changes: +CALC1CAP31 PO; +ELIQ2.5T PO; +HYDR-3910 PO; +NICO1DIS10 TD
[2022-07-09] MEDS ORDERED: ALBUTEROL SULFATE 2.5 MG/0.5 ML INH NEB SOLN INH ONE (07:40)
[2022-07-09] MEDS ORDERED: methylPREDNISolone 125MG 2ML VIAL IV ONE (07:40)
[2022-07-09] MEDS ORDERED: IPRATROPIUM 0.5MG/ALBUTEROL 2.5MG INH SOL UD 3ML (DUONEB) NEB ONE (07:40)
[2022-07-09] MEDS: TIOTROPIUM INHALER/CAPSULE (SPIRIVA) INH SCH (08:00)
[2022-07-09] MEDS ORDERED: ISOVUE-370 76% 100ML VIAL As Ordered ONE (08:22)
[2022-07-09 08:38] LABS: BASO % 0.3 % (0.0-1.0); EOS # 0.1 10^3/uL (0.0-0.5); EOS % 0.8 % (0.0-3.0); HEMATOCRIT 31.1 % (42.0-52.0); HEMOGLOBIN 9.5 g/dl (13.5-17.5); LYMPH % 9.5 % (24.0-44.0); MEAN CORPUSCULAR HEMOGLOBIN 29.2 pg (27.0-33.0); MEAN CORPUSCULAR HGB CONC 30.5 g/dl (32.0-36.5); MEAN CORPUSCULAR VOLUME 95.7 fl (80.0-96.0); MONO # 0.6 10^3/uL (0.0-0.8); MONO % 5.6 % (2.0-8.0); NEUTROPHILS % 83.1 % (36.0-66.0); RED BLOOD COUNT 3.25 10^6/uL (4.30-6.10); WHITE BLOOD COUNT 10.8 10^3/uL (4.0-10.0)
[2022-07-09] MEDS ORDERED: HYDR25TA PO (08:49)
[2022-07-09] MEDS ORDERED: AMLO1TAB25 PO (08:49)
[2022-07-09] MEDS ORDERED: ELIQ5TAB PO (08:49)
[2022-07-09 09:13] LABS: CK-MB VALUE MASS 4.4 NG/ML (<3.6); MB/CK RELATIVE INDEX 8.63 (< OR =4)
[2022-07-09 09:21] LABS: PLATELET COUNT, AUTOMATED 50 10^3/uL (150-450)
[2022-07-09 09:43] LABS: ALBUMIN 2.1 GM/DL (3.2-5.2); BILIRUBIN,DIRECT 0.2 MG/DL (0.0-0.2); BILIRUBIN,TOTAL 0.4 MG/DL (0.2-1.0); C REACTIVE PROTEIN QUANTITATIV 6.51 MG/DL (0.00-0.30); CALCIUM LEVEL 8.2 MG/DL (8.8-10.2); CREATININE FOR GFR 3.35 MG/DL (0.70-1.30); FREE T4 1.06 NG/DL (0.76-1.46); GLOMERULAR FILTRATION RATE 19.8 (>49); POTASSIUM SERUM 3.8 MEQ/L (3.5-5.1); THYROID STIMULATING HORMONE 3.41 uIU/ML (0.358-3.740); THYROXINE (T4) 8.8 UG/DL (4.5-12.0); TOTAL PROTEIN 6.3 GM/DL (6.4-8.2)
[2022-07-09] MEDS ORDERED: PIPERACILLIN/TAZOBACTAM SOD 4.5 GM in D5W MINI-BAG PLUS 50 ML IV ONE (09:55)
[2022-07-09 10:04] LABS: ERYTHROCYTE SEDIMENTATION RATE 60 mm/hr (0-20)
[2022-07-09] MEDS ORDERED: HOME MED LIST COMPLETE! XX SCH (10:15)
[2022-07-09 10:31] LABS: CK-MB VALUE MASS 4.2 NG/ML (<3.6); MB/CK RELATIVE INDEX 9.77 (< OR =4)
[2022-07-09 11:25] LABS: INR 1.04; PARTIAL THROMBOPLASTIN TIME 91.2 SECONDS (24.8-34.2); PROTHROMBIN TIME 13.8 SECONDS (12.5-14.5)
[2022-07-09] MEDS ORDERED: SODIUM CHLORIDE 0.9% 1000ML IV PRN (12:50)
[2022-07-09] MEDS ORDERED: diphenhydrAMINE 50MG/ML VIAL (J1200) IV ONE (12:50)
[2022-07-09] MEDS ORDERED: IPRATROPIUM 0.5MG/ALBUTEROL 2.5MG INH SOL UD 3ML (DUONEB) NEB PRN (13:05)
[2022-07-09] MEDS ORDERED: PANTOPRAZOLE 40MG TAB (PROTONIX) PO ONE (13:30)
[2022-07-09 18:26] LABS: PLTBLUE- EDTA FREE CALC 48 K/mm3 (172-450)
[2022-07-09 18:28] LABS: PLTBLUE- EDTA FREE MACHINE 44 10^3/uL (172-450)
[2022-07-09] MEDS: SYMBICORT 160/4.5MCG INHALER 6GM INH SCH (20:19)
[2022-07-09] MEDS: ATORVASTATIN 20 MG TAB PO SCH (20:43)
[2022-07-09] MEDS: METOPROLOL TART 25 MG TABLET PO SCH (20:43)
[2022-07-09] MEDS: NICOTINE 21MG/24HR 1 EA TRANSDERMAL TD SCH (21:06)
[2022-07-10 00:20] VITALS: BP 135/66
[2022-07-10 03:45] VITALS: BP 133/64
[2022-07-10 04:46] LABS: HEMATOCRIT 30.3 % (42.0-52.0); HEMOGLOBIN 9.5 g/dl (13.5-17.5); MEAN CORPUSCULAR HEMOGLOBIN 29.5 pg (27.0-33.0); MEAN CORPUSCULAR HGB CONC 31.4 g/dl (32.0-36.5); MEAN CORPUSCULAR VOLUME 94.1 fl (80.0-96.0); RED BLOOD COUNT 3.22 10^6/uL (4.30-6.10)
[2022-07-10 04:47] LABS: PLATELET COUNT, AUTOMATED 83 10^3/uL (150-450)
[2022-07-10 05:16] LABS: ALBUMIN 2.2 GM/DL (3.2-5.2); BILIRUBIN,TOTAL 0.5 MG/DL (0.2-1.0); CALCIUM LEVEL 8.5 MG/DL (8.8-10.2); CREATININE FOR GFR 2.47 MG/DL (0.70-1.30); GLOMERULAR FILTRATION RATE 28.1 (>49); POTASSIUM SERUM 4.4 MEQ/L (3.5-5.1); TOTAL PROTEIN 6.5 GM/DL (6.4-8.2)
[2022-07-10 07:55] VITALS: BP 140/66
[2022-07-10] MEDS: SYMBICORT 160/4.5MCG INHALER 6GM INH SCH ×2 (08:14→23:58)
[2022-07-10] MEDS: TIOTROPIUM INHALER/CAPSULE (SPIRIVA) INH SCH (08:14)
[2022-07-10] MEDS: METOPROLOL TART 25 MG TABLET PO SCH ×2 (08:39→20:07)
[2022-07-10] MEDS: NICOTINE 21MG/24HR 1 EA TRANSDERMAL TD SCH (08:40)
[2022-07-10 12:00] VITALS: BP 158/77
[2022-07-10] MEDS ORDERED: FLUBLOK(EGG FREE)(QUAD)INFLUENZA VACC 0.5ML SYRINGE 18YRS & OLDER IM.IMMUN ONE (13:00)
[2022-07-10 15:59] VITALS: BP 151/70
[2022-07-10 20:00] VITALS: BP 138/69
[2022-07-10] MEDS: ATORVASTATIN 20 MG TAB PO SCH (20:08)
[2022-07-11] VITALS (7 sets, daily range): BP systolic 133–170; BP diastolic 63–82
[2022-07-11 05:32] LABS: BASO % 0.3 % (0.0-1.0); EOS # 0.1 10^3/uL (0.0-0.5); EOS % 1.4 % (0.0-3.0); HEMATOCRIT 29.2 % (42.0-52.0); HEMOGLOBIN 8.7 g/dl (13.5-17.5); LYMPH # 1.7 10^3/uL (1.5-5.0); LYMPH % 18.5 % (24.0-44.0); MEAN CORPUSCULAR HEMOGLOBIN 28.9 pg (27.0-33.0); MEAN CORPUSCULAR HGB CONC 29.8 g/dl (32.0-36.5); MONO # 0.8 10^3/uL (0.0-0.8); MONO % 8.6 % (2.0-8.0); NEUTROPHILS # 6.6 10^3/uL (1.5-8.5); NEUTROPHILS % 70.9 % (36.0-66.0); PLATELET COUNT, AUTOMATED 122 10^3/uL (150-450); RED BLOOD COUNT 3.01 10^6/uL (4.30-6.10); WHITE BLOOD COUNT 9.3 10^3/uL (4.0-10.0)
[2022-07-11 06:04] LABS: CALCIUM LEVEL 8.2 MG/DL (8.8-10.2); CREATININE FOR GFR 3.12 MG/DL (0.70-1.30); GLOMERULAR FILTRATION RATE 21.5 (>49); POTASSIUM SERUM 3.9 MEQ/L (3.5-5.1)
[2022-07-11] MEDS ORDERED: PILL CUTTER 1 EACH XX PRN (07:10)
[2022-07-11] MEDS ORDERED: SODIUM CHLORIDE 0.9% 1000ML IV PRN (07:30)
[2022-07-11] MEDS ORDERED: DARBEPOETIN 100 MCG/0.5 ML *DIALYSIS* SYRINGE (J0882) IV SCH (07:30)
[2022-07-11] MEDS: TIOTROPIUM INHALER/CAPSULE (SPIRIVA) INH SCH (07:42)
[2022-07-11] MEDS: SYMBICORT 160/4.5MCG INHALER 6GM INH SCH (07:42)
[2022-07-11] MEDS: NICOTINE 21MG/24HR 1 EA TRANSDERMAL TD SCH (09:00)
[2022-07-11] MEDS ORDERED: METOPROLOL TART 25 MG TABLET PO SCH (09:00)
[2022-07-11] MEDS ORDERED: SYMB16INH INH (11:13)
[2022-07-11] MEDS ORDERED: TIOT18INH INH (11:13)
[2022-07-11] MEDS ORDERED: ALBU8.5H INH (11:13)
[2022-07-11] MEDS ORDERED: NICO14DI6 TOP (11:16)
[2022-07-11] MEDS ORDERED: OMEP40CA4 PO (11:54)
[2022-07-15 16:08] LABS: HEPARIN INDUCED PLATELET ABY 1.223 OD (0.000-0.400); UNFRACTIONATED HEPARIN HI DOSE <1 % (0-20); UNFRACTIONATED HEPARIN LOW DOS 75 % (0-20)
== END 2022-07-11 14:34 | disposition home or self-care (01) | DRG 189 ==
LOC: EDBD 07:26 → M ED 07:26 → M ED INP 12:40 → M PCU 19:10
PROVIDERS: ADMIT Internal Medicine; ATTEND Internal Medicine
PROC: 5A1D70Z Performance of Urinary Filtration, Intermittent, Less than 6 Hours Per Day (ICD-10-PCS; principal; 2022-07-09)
DX: J96.01 Acute respiratory failure with hypoxia (principal); N18.6 End stage renal disease; I13.2 Hypertensive heart and chronic kidney disease with heart failure and with stage 5 chronic kidney disease, or end stage renal disease; I48.92 Unspecified atrial flutter; I24.8 Other forms of acute ischemic heart disease; I50.9 Heart failure, unspecified; I95.3 Hypotension of hemodialysis; E78.5 Hyperlipidemia, unspecified; D72.829 Elevated white blood cell count, unspecified; F17.200 Nicotine dependence, unspecified, uncomplicated; J44.9 Chronic obstructive pulmonary disease, unspecified; D69.6 Thrombocytopenia, unspecified; D63.1 Anemia in chronic kidney disease; Z99.2 Dependence on renal dialysis; Z86.73 Personal history of transient ischemic attack (TIA), and cerebral infarction without residual deficits; Z79.899 Other long term (current) drug therapy

== ENCOUNTER 2022-07-14 23:52 | Emergency (ER) | payer MEDICARE, BC, OTHER ==
[~2022-07-14] VITALS: Ht 170.2 cm; Wt 66.0 kg
[~2022-07-14 23:52] MED LIST changes: +ALBU8.5H INH; +NICO14DI6 TOP; +OMEP40CA4 PO; +SYMB16INH INH; +TIOT18INH INH
[2022-07-15 01:11] LABS: BASO % 0.5 % (0.0-1.0); EOS # 0.2 10^3/uL (0.0-0.5); HEMATOCRIT 32.6 % (42.0-52.0); LYMPH # 1.9 10^3/uL (1.5-5.0); LYMPH % 23.3 % (24.0-44.0); MEAN CORPUSCULAR HEMOGLOBIN 29.1 pg (27.0-33.0); MEAN CORPUSCULAR HGB CONC 30.7 g/dl (32.0-36.5); MEAN CORPUSCULAR VOLUME 94.8 fl (80.0-96.0); MONO % 11.9 % (2.0-8.0); NEUTROPHILS # 4.9 10^3/uL (1.5-8.5); NEUTROPHILS % 60.8 % (36.0-66.0); PLATELET COUNT, AUTOMATED 230 10^3/uL (150-450); RED BLOOD COUNT 3.44 10^6/uL (4.30-6.10); WHITE BLOOD COUNT 8.1 10^3/uL (4.0-10.0)
[2022-07-15 01:38] LABS: CALCIUM LEVEL 8.1 MG/DL (8.8-10.2); CK-MB VALUE MASS 4.7 NG/ML (<3.6); CREATININE FOR GFR 2.18 MG/DL (0.70-1.30); GLOMERULAR FILTRATION RATE 32.5 (>49); MAGNESIUM LEVEL 1.9 MG/DL (1.8-2.4); POTASSIUM SERUM 4.5 MEQ/L (3.5-5.1)
[2022-07-15 03:10] LABS: CK-MB VALUE MASS 4.2 NG/ML (<3.6); MB/CK RELATIVE INDEX 10.77 (< OR =4)
[2022-07-15 04:52] VITALS: BP 146/87
== END 2022-07-15 06:03 | disposition home or self-care (01) ==
LOC: M ED 23:52
DX: R20.2 Paresthesia of skin (principal); R00.2 Palpitations; I10 Essential (primary) hypertension; J44.9 Chronic obstructive pulmonary disease, unspecified; E78.5 Hyperlipidemia, unspecified; K21.9 Gastro-esophageal reflux disease without esophagitis; Z90.89 Acquired absence of other organs; Z79.51 Long term (current) use of inhaled steroids; Z79.899 Other long term (current) drug therapy

== ENCOUNTER → 2022-07-29 | Outpatient (REF) | payer MEDICARE, BC, OTHER ==
[2022-07-29 19:05] LABS: BASO # 0.1 10^3/uL (0.0-0.2); BASO % 1.1 % (0.0-1.0); EOS # 0.1 10^3/uL (0.0-0.5); EOS % 1.1 % (0.0-3.0); HEMATOCRIT 42.4 % (42.0-52.0); HEMOGLOBIN 12.6 g/dl (13.5-17.5); LYMPH # 2.5 10^3/uL (1.5-5.0); LYMPH % 20.4 % (24.0-44.0); MEAN CORPUSCULAR HEMOGLOBIN 28.9 pg (27.0-33.0); MEAN CORPUSCULAR HGB CONC 29.7 g/dl (32.0-36.5); MEAN CORPUSCULAR VOLUME 97.2 fl (80.0-96.0); MONO # 1.5 10^3/uL (0.0-0.8); MONO % 11.9 % (2.0-8.0); NEUTROPHILS # 7.9 10^3/uL (1.5-8.5); PLATELET COUNT, AUTOMATED 479 10^3/uL (150-450); RED BLOOD COUNT 4.36 10^6/uL (4.30-6.10); WHITE BLOOD COUNT 12.2 10^3/uL (4.0-10.0)
[2022-07-29 20:18] LABS: CHOLESTEROL RISK RATIO 3.71 (<5); HDL CHOLESTEROL 48.2 MG/DL (>40)
== END ==
LOC: M LAB REF 17:21
PROVIDERS: ATTEND Nurse Practitioner Family
DX: J44.9 Chronic obstructive pulmonary disease, unspecified (principal)

== ENCOUNTER → 2022-12-30 | Outpatient (CLI) | payer MEDICARE, BC, OTHER | LOC: M RAD 11:37 | PROVIDERS: ATTEND Internal Medicine Nephrology | DX: N18.6 End stage renal disease (principal) ==

== ENCOUNTER 2023-03-31 07:35 | Observation (INO) | payer MEDICARE, BC, OTHER ==
[~2023-03-31] VITALS: Ht 172.7 cm; Wt 72.9 kg
[2023-03-31] VITALS (8 sets, daily range): BP systolic 119–150; BP diastolic 51–67; TEMP 97.5–98.8; O2SAT 90–97
[~2023-03-31 07:35] MED LIST changes: +NICO7DIS24 TD; +ROCA0.25 PO; +SEVE800T3 PO; +ceFAZolin SOD 2 GM in IV 1 EA IV ONE
[2023-03-31] MEDS ORDERED: D5W/0.2% SODIUM CHLORIDE 1,000 ML IV SCH (08:10)
[2023-03-31 08:41] LABS: HEMATOCRIT 38.9 % (42.0-52.0); HEMOGLOBIN 12.7 g/dl (13.5-17.5); MEAN CORPUSCULAR HEMOGLOBIN 30.2 pg (27.0-33.0); MEAN CORPUSCULAR HGB CONC 32.6 g/dl (32.0-36.5); MEAN CORPUSCULAR VOLUME 92.6 fl (80.0-96.0); PLATELET COUNT, AUTOMATED 283 10^3/uL (150-450); WHITE BLOOD COUNT 11.6 10^3/uL (4.0-10.0)
[2023-03-31 09:02] LABS: CREATININE FOR GFR 3.68 MG/DL (0.70-1.30); GLOMERULAR FILTRATION RATE 17.7 (>49); POTASSIUM SERUM 3.7 MMOL/L (3.5-5.1)
[2023-03-31] MEDS ORDERED: fentaNYL 100 MCG/2 ML INJECTION As Ordered ONE (09:10)
[2023-03-31] MEDS ORDERED: MIDAZOLAM INJ 2MG/2ML VIAL As Ordered ONE (09:10)
[2023-03-31] MEDS ORDERED: propofoL 200 MG/20 ML VIAL As Ordered ONE ×3 (09:10→11:48)
[2023-03-31] MEDS ORDERED: LIDOCAINE 2% 100MG/5ML SDV (FOR ANES.) As Ordered ONE (09:10)
[2023-03-31] MEDS ORDERED: ONDANSETRON 4MG 2ML VIAL As Ordered ONE (09:11)
[2023-03-31] MEDS ORDERED: PAPAVERINE HCL 60MG 2ML VIAL (30MG/ML) As Ordered ONE (10:47)
[2023-03-31] MEDS ORDERED: LIDOCAINE 1% SDV 30ML VIAL As Ordered ONE (10:47)
[2023-03-31] MEDS ORDERED: ACETAMINOPHEN 1000MG 100ML IV BAG As Ordered ONE (11:42)
[2023-03-31] MEDS ORDERED: propofoL 500 MG/50 ML VIAL As Ordered ONE (11:48)
[2023-03-31] MEDS ORDERED: fentaNYL 100 MCG/2 ML INJECTION IV PRN (12:40)
[2023-03-31] MEDS ORDERED: oxyCODONE 5MG TAB PO PRN (12:40)
[2023-03-31] MEDS ORDERED: ONDANSETRON 4MG 2ML VIAL IV PRN (12:40)
[2023-03-31] MEDS ORDERED: HYDROMORPHONE HCL 0.5 MG/ 0.5 ML SYRINGE IV PRN (12:40)
[2023-03-31] MEDS ORDERED: IPRATROPIUM 0.5MG/ALBUTEROL 2.5MG INH SOL UD 3ML (DUONEB) NEB PRN (14:15)
[2023-03-31] MEDS ORDERED: PILL CUTTER 1 EACH XX PRN (15:55)
[2023-03-31] MEDS: SYMBICORT 80/4.5MCG INHALER 6GM INH SCH (20:09)
[2023-03-31] MEDS: METOPROLOL TART 25 MG TABLET PO SCH (21:06)
[2023-03-31] MEDS: ATORVASTATIN 20 MG TAB PO SCH (21:06)
[2023-03-31] MEDS: **hydrALAZINE HCL** 25 MG TAB PO SCH (21:07)
[2023-04-01 01:30] VITALS: BP 136/63; TEMP 99; O2SAT 98
[2023-04-01] MEDS ORDERED: HEPARIN 1,000UNITS/ML 10ML VIAL (FOR RADIOLOGY & DIALYSIS ONLY) XX SCH (05:15)
[2023-04-01] MEDS ORDERED: SODIUM CHLORIDE 0.9% 1000ML IV PRN (05:15)
[2023-04-01] MEDS ORDERED: HEPARIN 1,000UNITS/ML 10ML VIAL (FOR RADIOLOGY & DIALYSIS ONLY) IV PRN (05:15)
[2023-04-01 05:30] VITALS: BP 137/65; TEMP 99; O2SAT 99
[2023-04-01] MEDS: **hydrALAZINE HCL** 25 MG TAB PO SCH (05:59)
[2023-04-01] MEDS: ATORVASTATIN 20 MG TAB PO SCH (05:59)
[2023-04-01] MEDS: METOPROLOL TART 25 MG TABLET PO SCH (06:01)
[2023-04-01 06:18] VITALS: BP 137/65
[2023-04-01 06:33] LABS: HEMATOCRIT 34.7 % (42.0-52.0); HEMOGLOBIN 11.5 g/dl (13.5-17.5); MEAN CORPUSCULAR HEMOGLOBIN 30.8 pg (27.0-33.0); MEAN CORPUSCULAR HGB CONC 33.1 g/dl (32.0-36.5); PLATELET COUNT, AUTOMATED 270 10^3/uL (150-450); RED BLOOD COUNT 3.73 10^6/uL (4.30-6.10); WHITE BLOOD COUNT 15.3 10^3/uL (4.0-10.0)
[2023-04-01 06:57] LABS: CALCIUM LEVEL 8.2 MG/DL (8.3-10.6); CREATININE FOR GFR 4.89 MG/DL (0.70-1.30); GLOMERULAR FILTRATION RATE 12.7 (>49); POTASSIUM SERUM 3.5 MMOL/L (3.5-5.1)
[2023-04-01 08:04] LABS: PROCALCITONIN 0.24 ng/ml
[2023-04-01] MEDS: SYMBICORT 80/4.5MCG INHALER 6GM INH SCH (09:28)
[2023-04-01] MEDS ORDERED: SYMB80INH INH (12:43)
[2023-04-01 12:45] VITALS: BP 136/69; TEMP 98.4; O2SAT 97
== END 2023-04-01 14:18 | disposition home or self-care (01) ==
LOC: M SDC 07:35 → M RR INP 14:10 → M MSPAV 15:56
PROVIDERS: ADMIT Internal Medicine; ATTEND Surgery Vascular Surgery
DX: N18.6 End stage renal disease (principal); R09.02 Hypoxemia; Z99.2 Dependence on renal dialysis; I48.0 Paroxysmal atrial fibrillation; E78.5 Hyperlipidemia, unspecified; I13.2 Hypertensive heart and chronic kidney disease with heart failure and with stage 5 chronic kidney disease, or end stage renal disease; I50.9 Heart failure, unspecified; J44.9 Chronic obstructive pulmonary disease, unspecified; D64.9 Anemia, unspecified; D72.828 Other elevated white blood cell count; Z86.2 Personal history of diseases of the blood and blood-forming organs and certain disorders involving the immune mechanism; Z86.73 Personal history of transient ischemic attack (TIA), and cerebral infarction without residual deficits; Z87.891 Personal history of nicotine dependence; Z79.899 Other long term (current) drug therapy; Z79.51 Long term (current) use of inhaled steroids
CPT/HCPCS: 36415; 36821; 71045; 80048; 84145; 85027; 86140; 87635; 94640; G0257; G0378; J0131; J0690; J1100; J2405; J2440; J3010

== ENCOUNTER → 2023-04-07 | Outpatient (REF) | payer MEDICARE, BC, OTHER ==
[~2023-04-07] MED LIST changes: +SYMB80INH INH; -ceFAZolin SOD 2 GM in IV 1 EA IV ONE
[2023-04-07 18:43] LABS: BASO # 0.1 10^3/uL (0.0-0.2); BASO % 0.8 % (0.0-1.0); EOS # 0.4 10^3/uL (0.0-0.5); EOS % 3.1 % (0.0-3.0); HEMATOCRIT 38.1 % (42.0-52.0); HEMOGLOBIN 12.4 g/dl (13.5-17.5); LYMPH # 3.1 10^3/uL (1.5-5.0); LYMPH % 22.2 % (24.0-44.0); MEAN CORPUSCULAR HEMOGLOBIN 30.7 pg (27.0-33.0); MEAN CORPUSCULAR HGB CONC 32.5 g/dl (32.0-36.5); MEAN CORPUSCULAR VOLUME 94.3 fl (80.0-96.0); MONO % 12.5 % (2.0-8.0); NEUTROPHILS # 8.5 10^3/uL (1.5-8.5); NEUTROPHILS % 60.8 % (36.0-66.0); PLATELET COUNT, AUTOMATED 274 10^3/uL (150-450); RED BLOOD COUNT 4.04 10^6/uL (4.30-6.10)
[2023-04-07 19:19] LABS: MONO # 1.8 10^3/uL (0.0-0.8)
== END ==
LOC: M LAB REF 16:26
PROVIDERS: ATTEND Nurse Practitioner Family
DX: D75.839 Thrombocytosis, unspecified (principal)

== ENCOUNTER → 2023-09-24 | Outpatient (REF) | payer MEDICARE, BC, OTHER ==
[2023-09-24 17:52] LABS: HEMOGLOBIN A1c 5.3 % (4.0-6.0)
[2023-09-24 17:57] LABS: CHOLESTEROL RISK RATIO 3.35 (<5); LDL CHOLESTEROL 70.2 MG/DL (<100)
[2023-09-24 17:59] LABS: FERRITIN 1212.8 NG/ML (10.5-307.3); THYROID STIMULATING HORMONE 1.325 uIU/ML (0.55-4.78)
== END ==
LOC: M LAB REF 16:30
PROVIDERS: ATTEND Nurse Practitioner Family
DX: R68.89 Other general symptoms and signs (principal); Z13.220 Encounter for screening for lipoid disorders; Z68.24 Body mass index [BMI] 24.0-24.9, adult; Z79.899 Other long term (current) drug therapy; I50.9 Heart failure, unspecified

== ENCOUNTER → 2023-12-15 | Outpatient (REF) | payer MEDICARE, OTHER ==
[~2023-12-15] MED LIST changes: -HYDR-3910 PO; -HYDR25TA PO; +HYDR25TA87 PO; +HYDR25TA88 PO
== END ==
LOC: M LAB REF 12:03
PROVIDERS: ATTEND Physician Assistant
DX: R68.89 Other general symptoms and signs (principal); D50.9 Iron deficiency anemia, unspecified

== ENCOUNTER → 2024-04-19 | Outpatient (REF) | payer MEDICARE, OTHER ==
[2024-04-19 15:35] LABS: PERCENT SATURATION 18.9 % (19.7-50.0)
== END ==
LOC: M LAB REF 13:36
PROVIDERS: ATTEND Nurse Practitioner Family
DX: R77.8 Other specified abnormalities of plasma proteins (principal); D50.9 Iron deficiency anemia, unspecified

== ENCOUNTER → 2024-08-23 | Outpatient (CLI) | payer MEDICARE, BC ==
[~2024-08-23] MED LIST changes: +ACETAMINOPHEN 325 MG TAB PO PRN; +ISOVUE-300 61% 100ML VIAL As Ordered ONE; +LIDOCAINE 1% MDV 20ML VIAL As Ordered ONE; +MIDAZOLAM INJ 2MG/2ML VIAL As Ordered ONE; +NS 1,000 ML IV SCH; +ONDANSETRON 4MG 2ML VIAL IV PRN; +fentaNYL 100 MCG/2 ML INJECTION As Ordered ONE
[2024-08-23 07:07] VITALS: TEMP 98.4
[2024-08-23 07:53] LABS: HEMATOCRIT 35.4 % (42.0-52.0); HEMOGLOBIN 11.8 g/dl (13.5-17.5); MEAN CORPUSCULAR HEMOGLOBIN 30.3 pg (27.0-33.0); MEAN CORPUSCULAR HGB CONC 33.3 g/dl (32.0-36.5); MEAN CORPUSCULAR VOLUME 90.8 fl (80.0-96.0); PLATELET COUNT, AUTOMATED 256 10^3/uL (150-450); WHITE BLOOD COUNT 10.5 10^3/uL (4.0-10.0)
[2024-08-23 08:09] LABS: CALCIUM LEVEL 8.8 MG/DL (8.3-10.6); CREATININE FOR GFR 5.1 MG/DL (0.70-1.30); GLOMERULAR FILTRATION RATE 12.1 (>49); POTASSIUM SERUM 4.6 MMOL/L (3.5-5.1)
[2024-08-23 10:35] VITALS: BP 153/68; O2SAT 96
== END ==
LOC: M IRPRO 06:10
PROVIDERS: ATTEND Internal Medicine Nephrology
DX: N18.6 End stage renal disease (principal)
CPT/HCPCS: 36905; 80048; 85027; 99152; 99153; C1769; C1894; J2250; J3010; Q9967

== ENCOUNTER → 2024-11-01 | Outpatient (CLI) | payer MEDICARE, BC ==
[~2024-11-01] MED LIST changes: -ACETAMINOPHEN 325 MG TAB PO PRN; -ISOVUE-300 61% 100ML VIAL As Ordered ONE; -LIDOCAINE 1% MDV 20ML VIAL As Ordered ONE; -MIDAZOLAM INJ 2MG/2ML VIAL As Ordered ONE; -NS 1,000 ML IV SCH; -ONDANSETRON 4MG 2ML VIAL IV PRN; -fentaNYL 100 MCG/2 ML INJECTION As Ordered ONE
== END ==
LOC: M RAD 12:00
PROVIDERS: ATTEND Nurse Practitioner Family
DX: Z87.891 Personal history of nicotine dependence (principal)

== ENCOUNTER → 2024-11-10 | Outpatient (REF) | payer MEDICARE, OTHER ==
[2024-11-10 15:05] LABS: CHOLESTEROL RISK RATIO 3.75 (<5); HDL CHOLESTEROL 40.2 MG/DL (>40); LDL CHOLESTEROL 83.2 MG/DL (<100); NON-HDL-C 110.8 MG/DL
[2024-11-10 15:07] LABS: HEMOGLOBIN A1c 5.3 % (4.0-6.0)
[2024-11-10 15:08] LABS: THYROID STIMULATING HORMONE 1.414 uIU/ML (0.55-4.78)
== END ==
LOC: M LAB REF 12:12
PROVIDERS: ATTEND Nurse Practitioner Family
DX: I10 Essential (primary) hypertension (principal)

== ENCOUNTER 2025-01-18 11:33 | Inpatient (IN) | payer MEDICARE, OTHER ==
[~2025-01-18] VITALS: Ht 172.7 cm; Wt 69.3 kg
[2025-01-18] VITALS (9 sets, daily range): BP systolic 105–175; BP diastolic 60–86; TEMP 99–101.1; O2SAT 89–97
[~2025-01-18 11:33] MED LIST changes: +AMLO-751 PO; -AMLO10TA PO
[2025-01-18] MEDS ORDERED: ISOVUE-370 76% 100ML VIAL As Ordered ONE (11:39)
[2025-01-18 11:50] LABS: VENOUS BASE EXCESS -2.4 (-2.0-2.0); VENOUS HCO3 23.3 MMOL/L (23.0-27.0); VENOUS O2 SATURATION 73.5 % (60.0-80.0); VENOUS PARTIAL PRESSURE CO2 43.8 mmHg (38.0-50.0); VENOUS PARTIAL PRESSURE O2 44.5 mmHg (30.0-50.0); VENOUS PH 7.344 UNITS (7.330-7.430); VENOUS STANDARD HCO3 22.1 MMOL/L; VENOUS TOTAL CO2 24.7 MMOL/L (24.0-28.0)
[2025-01-18 12:06] LABS: BASO # 0.1 10^3/uL (0.0-0.2); BASO % 0.6 % (0.0-1.0); EOS % 0.1 % (0.0-3.0); HEMATOCRIT 30.3 % (42.0-52.0); HEMOGLOBIN 9.6 g/dl (13.5-17.5); LYMPH # 1.3 10^3/uL (1.5-5.0); LYMPH % 11.3 % (24.0-44.0); MEAN CORPUSCULAR HGB CONC 31.7 g/dl (32.0-36.5); MEAN CORPUSCULAR VOLUME 91.5 fl (80.0-96.0); MONO # 0.8 10^3/uL (0.0-0.8); MONO % 6.7 % (2.0-8.0); NEUTROPHILS # 9.4 10^3/uL (1.5-8.5); NEUTROPHILS % 80.9 % (36.0-66.0); PLATELET COUNT, AUTOMATED 282 10^3/uL (150-450); RED BLOOD COUNT 3.31 10^6/uL (4.30-6.10); WHITE BLOOD COUNT 11.7 10^3/uL (4.0-10.0)
[2025-01-18 12:21] LABS: INR 1.24; PARTIAL THROMBOPLASTIN TIME 34.5 SECONDS (24.8-34.2); PROTHROMBIN TIME 15.9 SECONDS (12.5-14.5)
[2025-01-18 12:30] LABS: OSMOLALITY SERUM 309 MOSM/KG (280-301)
[2025-01-18 12:33] LABS: ETHYL ALCOHOL (ETHANOL) < 0.003 % (0.000-0.010)
[2025-01-18 12:34] LABS: CK-MB VALUE MASS 4.5 NG/ML (<3.6); CPK CREATINE PHOSPHOKINASE 775 U/L (46-171); MB/CK RELATIVE INDEX 0.58 (< OR =4)
[2025-01-18 12:35] LABS: SALICYLATE LEVEL < 3.0 MG/DL (<30)
[2025-01-18 12:38] LABS: THYROID STIMULATING HORMONE 1.231 uIU/ML (0.55-4.78)
[2025-01-18 12:43] LABS: ALBUMIN 2.7 G/DL (3.2-5.2); ALKALINE PHOSPHATASE 130 U/L (40-129); ALT/SGPT 13 U/L (7.0-40); AST/SGOT 31 U/L (<34); BILIRUBIN,DIRECT 0.2 MG/DL (<0.4); BILIRUBIN,TOTAL 0.5 MG/DL (0.3-1.2); BLOOD UREA NITROGEN 43 MG/DL (9-23); CALCIUM LEVEL 7.9 MG/DL (8.3-10.6); CARBON DIOXIDE LEVEL 26 MMOL/L (20-31); CHLORIDE LEVEL 100 MMOL/L (98-107); CREATININE FOR GFR 8.51 MG/DL (0.70-1.30); GLOMERULAR FILTRATION RATE 6.3 (>49); GLUCOSE, FASTING 138 MG/DL (74-106); POTASSIUM SERUM 4.5 MMOL/L (3.5-5.1); SODIUM LEVEL 142 MMOL/L (136-145); TOTAL PROTEIN 7.2 G/DL (5.7-8.2)
[2025-01-18 13:01] LABS: BARBITURATES URINE NEGATIVE (NEGATIVE); CANNABINOIDS URINE NEGATIVE (NEGATIVE); COCAINE METABOLITE URINE NEGATIVE (NEGATIVE); METHADONE URINE NEGATIVE (NEGATIVE); OPIATES URINE NEGATIVE (NEGATIVE); PHENCYCLIDINE URINE NEGATIVE (NEGATIVE)
[2025-01-18 13:02] LABS: AMPHETAMINES LEVEL URINE NEGATIVE (NEGATIVE); BENZODIAZEPINES URINE NEGATIVE (NEGATIVE)
[2025-01-18 13:16] LABS: ETHYL ALCOHOL (ETHANOL) < 0.003 % (0.000-0.010)
[2025-01-18 13:17] LABS: SALICYLATE LEVEL < 3.0 MG/DL (<30)
[2025-01-18 13:18] LABS: ALBUMIN 2.7 G/DL (3.2-5.2); ALKALINE PHOSPHATASE 127 U/L (40-129); ALT/SGPT 13 U/L (7.0-40); AST/SGOT 34 U/L (<34); BILIRUBIN,DIRECT 0.2 MG/DL (<0.4); BILIRUBIN,TOTAL 0.5 MG/DL (0.3-1.2); TOTAL PROTEIN 7.2 G/DL (5.7-8.2)
[2025-01-18 13:19] LABS: OSMOLALITY SERUM 305 MOSM/KG (280-301)
[2025-01-18] MEDS ORDERED: VENTAER INH (14:46)
[2025-01-18] MEDS ORDERED: SYMB80INH INH (14:51)
[2025-01-18] MEDS ORDERED: METO25TA4 PO (14:51)
[2025-01-18] MEDS ORDERED: AURY1TAB PO (14:51)
[2025-01-18] MEDS ORDERED: HOME MED LIST COMPLETE! XX SCH (14:55)
[2025-01-18] MEDS: ASPIRIN 300 MG SUPP PR SCH (16:21)
[2025-01-18] MEDS: ACETAMINOPHEN *IV* 1,000 MG in IV 1 EA IV PRN (16:22)
[2025-01-18] MEDS: SODIUM CHLORIDE 3% 500 ML IV SCH (17:25)
[2025-01-19] VITALS (21 sets, daily range): BP systolic 114–156; BP diastolic 55–73; TEMP 98.9–99.9; O2SAT 87–99
[2025-01-19 04:49] LABS: HEMATOCRIT 29.2 % (42.0-52.0); HEMOGLOBIN 9.3 g/dl (13.5-17.5); MEAN CORPUSCULAR HEMOGLOBIN 29.2 pg (27.0-33.0); MEAN CORPUSCULAR HGB CONC 31.8 g/dl (32.0-36.5); MEAN CORPUSCULAR VOLUME 91.5 fl (80.0-96.0); PLATELET COUNT, AUTOMATED 286 10^3/uL (150-450); RED BLOOD COUNT 3.19 10^6/uL (4.30-6.10); WHITE BLOOD COUNT 12.6 10^3/uL (4.0-10.0)
[2025-01-19 05:10] LABS: ALBUMIN 2.6 G/DL (3.2-5.2); BILIRUBIN,TOTAL 0.4 MG/DL (0.3-1.2); CREATININE FOR GFR 9.91 MG/DL (0.70-1.30); GLOMERULAR FILTRATION RATE 5.2 (>49); POTASSIUM SERUM 4.8 MMOL/L (3.5-5.1); TOTAL PROTEIN 6.9 G/DL (5.7-8.2)
[2025-01-19] MEDS ORDERED: SODIUM CHLORIDE 0.9% 1000 ML IV PRN (06:00)
[2025-01-19] MEDS ORDERED: HEPARIN 1,000UNITS/ML 10ML VIAL (FOR RADIOLOGY & DIALYSIS ONLY) IV PRN (06:00)
[2025-01-19] MEDS ORDERED: LIDOCAINE 1% SDV 5ML VIAL SC PRN (06:00)
[2025-01-19] MEDS ORDERED: HEPARIN 1,000UNITS/ML 10ML VIAL (FOR RADIOLOGY & DIALYSIS ONLY) XX SCH (06:00)
[2025-01-19] MEDS: SODIUM CHLORIDE 3% 500 ML IV ONE ×2 (06:28→19:28)
[2025-01-19] MEDS ORDERED: FAMOTIDINE IV BAG 20 MG in IV 1 EA IV SCH (10:00)
[2025-01-19] MEDS: FAMOTIDINE 20MG/2ML VIAL IV SCH (16:15)
[2025-01-19] MEDS: ALBUTEROL SULFATE 2.5MG/0.5ML INH CONCENTRATE NEB SOLN NEB PRN (20:22)
[2025-01-20] VITALS (20 sets, daily range): BP systolic 131–170; BP diastolic 62–82; TEMP 99–102; O2SAT 92–97
[2025-01-20 04:20] LABS: HEMATOCRIT 30.2 % (42.0-52.0); HEMOGLOBIN 9.8 g/dl (13.5-17.5); MEAN CORPUSCULAR HEMOGLOBIN 29.6 pg (27.0-33.0); MEAN CORPUSCULAR HGB CONC 32.5 g/dl (32.0-36.5); MEAN CORPUSCULAR VOLUME 91.2 fl (80.0-96.0); PLATELET COUNT, AUTOMATED 278 10^3/uL (150-450); RED BLOOD COUNT 3.31 10^6/uL (4.30-6.10); WHITE BLOOD COUNT 12.8 10^3/uL (4.0-10.0)
[2025-01-20 04:39] LABS: ALBUMIN 2.5 G/DL (3.2-5.2); BILIRUBIN,TOTAL 0.4 MG/DL (0.3-1.2); CALCIUM LEVEL 8.4 MG/DL (8.3-10.6); CREATININE FOR GFR 6.03 MG/DL (0.70-1.30); GLOMERULAR FILTRATION RATE 9.5 (>49); MAGNESIUM LEVEL 2.3 MG/DL (1.8-2.4); PHOSPHORUS LEVEL 6.2 MG/DL (2.4-5.1)
[2025-01-20 04:41] LABS: INR 1.17; PARTIAL THROMBOPLASTIN TIME 33.5 SECONDS (24.8-34.2); PROTHROMBIN TIME 15.2 SECONDS (12.5-14.5)
[2025-01-20] MEDS: SODIUM CHLORIDE 3% 500 ML IV ONE (09:22)
[2025-01-20 09:24] LABS: HEMOGLOBIN A1c 5.9 % (4.0-6.0)
[2025-01-20 09:31] LABS: CHOLESTEROL RISK RATIO 3.43 (<5); HDL CHOLESTEROL 34.6 MG/DL (>40); LDL CHOLESTEROL 66.6 MG/DL (<100); NON-HDL-C 84.4 MG/DL
[2025-01-20] MEDS ORDERED: VARIBAR PUDDING 40% w/v 230ML TUBE As Ordered ONE (11:21)
[2025-01-20] MEDS ORDERED: VARIBAR NECTAR 40% w/v 240ML SUSP BTL As Ordered ONE (11:22)
[2025-01-20] MEDS ORDERED: E-Z-PAQUE 96% w/w SUSP 176GM BTL As Ordered ONE (11:22)
[2025-01-21] VITALS (16 sets, daily range): BP systolic 99–184; BP diastolic 50–82; TEMP 98.7–99.6; O2SAT 22–98
[2025-01-21 04:12] LABS: BASO # 0.1 10^3/uL (0.0-0.2); BASO % 1.1 % (0.0-1.0); EOS # 0.1 10^3/uL (0.0-0.5); EOS % 1.7 % (0.0-3.0); HEMATOCRIT 29.4 % (42.0-52.0); HEMOGLOBIN 9.2 g/dl (13.5-17.5); LYMPH # 1.4 10^3/uL (1.5-5.0); LYMPH % 18.3 % (24.0-44.0); MEAN CORPUSCULAR HEMOGLOBIN 29.2 pg (27.0-33.0); MEAN CORPUSCULAR HGB CONC 31.3 g/dl (32.0-36.5); MEAN CORPUSCULAR VOLUME 93.3 fl (80.0-96.0); MONO # 0.7 10^3/uL (0.0-0.8); MONO % 8.8 % (2.0-8.0); NEUTROPHILS # 5.3 10^3/uL (1.5-8.5); NEUTROPHILS % 69.7 % (36.0-66.0); PLATELET COUNT, AUTOMATED 289 10^3/uL (150-450); RED BLOOD COUNT 3.15 10^6/uL (4.30-6.10); WHITE BLOOD COUNT 7.5 10^3/uL (4.0-10.0)
[2025-01-21 04:52] LABS: ALBUMIN 2.5 G/DL (3.2-5.2); BILIRUBIN,TOTAL 0.2 MG/DL (0.3-1.2); CALCIUM LEVEL 8.2 MG/DL (8.3-10.6); CREATININE FOR GFR 8.33 MG/DL (0.70-1.30); GLOMERULAR FILTRATION RATE 6.4 (>49); MAGNESIUM LEVEL 2.5 MG/DL (1.8-2.4); PHOSPHORUS LEVEL 6.2 MG/DL (2.4-5.1); POTASSIUM SERUM 4.2 MMOL/L (3.5-5.1)
[2025-01-21] MEDS ORDERED: HEPARIN 1,000UNITS/ML 10ML VIAL (FOR RADIOLOGY & DIALYSIS ONLY) IV PRN (06:00)
[2025-01-21] MEDS ORDERED: HEPARIN 1,000UNITS/ML 10ML VIAL (FOR RADIOLOGY & DIALYSIS ONLY) XX SCH (06:00)
[2025-01-21] MEDS ORDERED: SODIUM CHLORIDE 0.9% 1000 ML IV PRN (06:00)
[2025-01-21] MEDS ORDERED: LIDOCAINE 1% SDV 5ML VIAL SC PRN (06:00)
[2025-01-21] MEDS: METOPROLOL TART 25 MG TABLET PO SCH (09:00)
[2025-01-21] MEDS: ASPIRIN 81MG CHEW TABLET NG SCH (09:00)
[2025-01-21] MEDS ORDERED: MORPHINE 4 MG/ML 1ML VIAL As Ordered ONE (09:07)
[2025-01-21] MEDS: METOPROLOL 5 MG/5 ML VIAL IV STA (09:12)
[2025-01-21] MEDS: MORPHINE 4 MG/ML 1ML VIAL IV ONE (09:12)
[2025-01-21] MEDS: LORazepam 2 MG/ML 1ML VIAL IV PRN (09:31)
[2025-01-21] MEDS: MORPHINE 4 MG/ML 1ML VIAL IV PRN (09:43)
== END 2025-01-21 09:52 | disposition expired | DRG 64 ==
LOC: M ED 11:33 → EDBD 11:33 → M ED INP 14:15 → M ICU 15:34
PROVIDERS: ADMIT Internal Medicine Pulmonary Disease; ATTEND Internal Medicine
PROC: B246ZZZ Ultrasonography of Right and Left Heart (ICD-10-PCS; principal; 2025-01-18)
PROC: 5A1D70Z Performance of Urinary Filtration, Intermittent, Less than 6 Hours Per Day (ICD-10-PCS; 2025-01-19)
DX: I63.512 Cerebral infarction due to unspecified occlusion or stenosis of left middle cerebral artery (principal); N18.6 End stage renal disease; G93.6 Cerebral edema; G93.5 Compression of brain; J96.01 Acute respiratory failure with hypoxia; I50.32 Chronic diastolic (congestive) heart failure; I13.2 Hypertensive heart and chronic kidney disease with heart failure and with stage 5 chronic kidney disease, or end stage renal disease; G81.91 Hemiplegia, unspecified affecting right dominant side; J44.9 Chronic obstructive pulmonary disease, unspecified; I48.0 Paroxysmal atrial fibrillation; E78.5 Hyperlipidemia, unspecified; Z51.5 Encounter for palliative care; Z66 Do not resuscitate; D75.829 Heparin-induced thrombocytopenia, unspecified; R47.01 Aphasia; R27.0 Ataxia, unspecified; R29.810 Facial weakness; I65.21 Occlusion and stenosis of right carotid artery; D63.1 Anemia in chronic kidney disease; J45.909 Unspecified asthma, uncomplicated; J43.9 Emphysema, unspecified; Z87.891 Personal history of nicotine dependence; Z99.2 Dependence on renal dialysis; Z79.01 Long term (current) use of anticoagulants; Z79.899 Other long term (current) drug therapy; Z88.8 Allergy status to other drugs, medicaments and biological substances